=== PATIENT | female | born 1965 | race Caucasian/White ===

== ENCOUNTER → 2016-09-07 | Outpatient (CLI) | payer BC | END | disposition home or self-care (01) | LOC: C.PAPS 08:35 | PROVIDERS: ATTEND Obstetrics & Gynecology | DX: Z01.419 Encounter for gynecological examination (general) (routine) without abnormal findings (principal) ==

== ENCOUNTER → 2016-09-24 | Outpatient (CLI) | payer BC ==
--- NOTE | 2016-09-24 14:06 | MAMMOGRAPHY REPORT ---
BILATERAL DIGITAL SCREENING MAMMOGRAM TOMOSYNTHESIS WITH CAD: 09/24/2016 CLINICAL HISTORY: Routine screening. Patient has no complaints. TECHNIQUE: Breast tomosynthesis in addition to standard 2D mammography was performed. Current study was also evaluated with a Computer Aided Detection (CAD) system. COMPARISON: Comparison is made to exams dated: 09/23/2015 mammogram, 09/19/2014 mammogram, 05/24/2013 mammogram, 05/19/2012 mammogram, 05/18/2011 mammogram - [facility], and 11/15/2008. BREAST COMPOSITION: The tissue of both breasts is heterogeneously dense, which may obscure small ma sses. FINDINGS: No suspicious masses, calcifications, or areas of architectural distortion are noted in e ither breast. There has been no significant interval change compared to prior exams. IMPRESSION: ACR BI-RADS CATEGORY 1: NEGATIVE There is no mammographic evidence of malignancy. A 1 year screening mammogram is recommended. The p atient will receive written notification of the results. Approximately 10% of breast cancers are not detected with mammography. A negative mammographic repor t should not delay biopsy if a clinically suggestive mass is present. Lisandra Elliott M.D. ah/:09/24/2016 07:53:27 Statement Distribution Clerk: Radha VERDE(Kimberly)(M), [facility] letter sent: Normal 1/2 BI-RADS Code: ACR BI-RADS Category 1: Negative
== END | disposition home or self-care (01) ==
LOC: C.MAMM 07:36
PROVIDERS: ATTEND Obstetrics & Gynecology
DX: Z12.31 Encounter for screening mammogram for malignant neoplasm of breast (principal)

== ENCOUNTER 2024-03-06 15:59 | Observation (INO) ==
--- NOTE | 2024-03-06 16:28 | XRay Report ---
EXAM: Radiograph of the Chest 1 View INDICATION: Chest pain. TECHNIQUE: Frontal view of the chest. COMPARISON: 01/09/2022 FINDINGS: Lungs and pleural spaces: No consolidation or pulmonary edema. No pleural effusion or pneumothorax. Heart: Shape and configuration within normal limits allowing for technique. Mediastinum: Normal contour. Bones/joints: No fracture, erosion or dislocation. Soft tissues: No abnormality noted. No radiopaque foreign body noted. Upper abdomen: No abnormality noted. IMPRESSION: No abnormality noted. Electronically signed by Yuli Ward 03-06-2024 4:24 PM
[2024-03-06 16:30] LABS: Basophils # (auto) 0.09 K/uL (0.00-0.20); Eosinophils % (auto) 2.1 %; Hematocrit (blood only) 40.5 % (37.0-47.0); Hemoglobin 14.3 g/dl (12.0-16.0); Immature Granulocytes # (auto) 0.03 K/uL (0.01-0.20); Immature Granulocytes % (auto) 0.3 %; Lymphocytes # (auto) 3.33 K/uL (1.20-3.40); Lymphocytes % (auto) 35.4 %; Mean Corpuscular Hemoglobin 31.6 pg (25.0-34.0); Mean Corpuscular Hgb Conc 35.3 g/dL (32.0-36.0); Mean Corpuscular Volume 89.6 fL (80.0-100.0); Monocytes # (auto) 0.91 K/uL (0.11-0.59); Monocytes % (auto) 9.7 %; Neutrophils # (auto) 4.86 K/uL (1.40-6.50); Neutrophils % (auto) 51.5 %; Platelet Count 271 K/uL (130-400); RDW Coefficient of Variation 11.8 % (11.5-14.5); RDW Standard Deviation 38.3 fL (36.4-46.3); Red Blood Count 4.52 M/uL (4.20-5.40); White Blood Count 9.42 K/ul (4.8-10.8)
[2024-03-06 16:48] LABS: Alanine Aminotransferase 28 U/L (7-52); Albumin Globulin Ratio 1.5 (0.9-2); Albumin Level 4.5 gm/dl (3.4-5.0); Alkaline Phosphatase 88 U/L (34-104); Anion Gap 8 (3-11); Aspartate Aminotransferase 22 U/L (13-39); BUN Creatinine Ratio 15.5 (10-20); Bilirubin,Total 0.7 mg/dl (0.2-1.0); Blood Urea Nitrogen 16 mg/dl (6-23); Calcium 9.2 mg/dl (8.6-10.3); Carbon Dioxide 26 mmol/L (21-32); Chloride 105 mmol/L (98-107); Creatinine Clr Calc Pharmacy 63.3 ml/min; Globulin 3.1 gm/dl (2.5-4.0); Glucose 108 mg/dl (70-99(Fasting)); Potassium 3.4 mmol/L (3.5-5.1); Sodium 139 mmol/L (136-145); Total Protein 7.6 gm/dl (6.0-8.3)
[2024-03-06 16:54] LABS: Troponin I High Sensitivity 2.9 pg/ml (0-14)
--- NOTE | 2024-03-06 16:54 | Emergency Department Note ---
Impression & Plan Chest pain, Hypokalemia ED Provider Note NAME: DEVIN OGDEN AGE: 58 SEX: F : 1965 ARRIVES VIA: Walk-In INFORMANT: Patient ED PROVIDER(S): Jose Dunn DO CHIEF COMPLAINT: chest pain HPI: Patient is a 58-year-old female with a past medical history of depression and anxiety who presents to the ER for chest pain. Pain is located in the middle of the chest. Pain started around 2:00 today. It is worse with exertion and improves with rest. Pain is located in right upper chest and goes up through the neck currently. She admits to shortness of breath with this. She has had no symptoms prior to this. Denies any belly pain, nausea, vomiting, or diarrhea. No dysuria, urgency, or frequency. She admits she is on doxycycline for an upper respiratory infection/sinusitis. Did have some constipation earlier that has resolved. Denies any history of diabetes, hypertension, hyperlipidemia, CAD or smoking. Does have a family history of heart disease. ADDITIONAL HISTORY OBTAINED: Per HPI Chronic Medical/Social Conditions Affecting Care: Per HPI PAST MEDICAL HISTORY:See Below PAST SURGICAL HISTORY:See Below FAMILY HISTORY:See Below SOCIAL HISTORY:See Below HOME MEDICATIONS:See Below ALLERGIES:See Below VITALS:See Below PHYSICAL EXAMINATION: GENERAL: Sitting up in bed, alert, well appearing, well nourished, no distress, non-toxic EYE EXAM: normal conjunctiva. PERRL and EOM's grossly intact. OROPHARYNX: no exudate, no erythema, lips, buccal mucosa, and tongue normal and mucous membranes are moist NECK: supple, no nuchal rigidity, no adenopathy, non-tender LUNGS: Clear to auscultation. Normal chest wall mechanics HEART: no murmurs, S1 normal and S2 normal ABDOMEN: abdomen soft, non-tender, normo-active bowel sounds, no masses, no rebound or guarding. UPPER EXTREMITIES: upper extremities are grossly normal. LOWER EXTREMITIES: Calves are equal bilaterally NEURO EXAM: Normal sensorium, cranial nerves II-XII grossly intact, normal speech, no gross weakness of arms, no gross weakness of legs. MEDICAL DECISION MAKING: Patient is a 58-year-old female who presents ER for the above-stated complaint. IV was established and blood work was obtained. Labs show no significant leukocytosis or anemia. INR unremarkable. D-dimer was negative and low risk patient not be pursued any further. BMP with mild hypokalemia 3.3. LFTs bilirubin was unremarkable. Mag 2.1. Troponins were negative x 1. EKG does appear to be change from previous. Symptoms are exertional. She was given nitro and pain resolved as well as aspirin. Patient was updated bedside discussed with the hospitalist for further evaluation management treatment. Consults/Care Managements Discussions: Per MDM Triage Nursing notes reviewed. Limited review of prior medical records performed Vital Signs: reviewed and remarkable for HTN Differential diagnosis: Cardiac ischemia, aortic dissection, pulmonary embolism, pneumothorax, pneumonia, pericarditis, myocarditis, esophageal rupture, GERD, cholecystitis, pancreatitis, musculoskeletal, as well as other pathologies. ER treatment provided: See below Diagnostics interpreted by me include EKG and cardiac monitoring as listed below: -Cardiac Monitoring: An order was placed for continuous cardiac monitoring. The monitor shows a rate of 85 with sinus rhythm. -ECG: Sinus rhythm rate of 90 Normal axis QTc [address] ST depressions in the inferior leads as well as the lateral leads -Laboratory studies:Interpreted by me as stated above in MDM and shown below. Imaging studies: Xrays: As interpreted by me: Portable AP upright 1 view of the chest shows no focal infiltrate CTs show: none Procedures:none Critical Care: None Past Med/Surg History Problem List (Updated 03/06/24 @ 21:45 by Jose Dunn DO) Hypokalemia (Acute) Chest pain (Acute) Sinusitis Encounter for annual routine gynecological examination Medical History (Updated 03/06/24 @ 21:45 by Jose Dunn DO) Breast lump Migraine headache History of herpes zoster Surgical History S/P lumpectomy, right breast radial scar S/P tonsillectomy H/O oral surgery Family History Aunt Breast cancer Denies family history of Ovarian cancer Prostate cancer Myocardial infarction Colorectal cancer Social History (Updated 06/21/23 @ 15:22 by Jo Ann Junior, FAIZA) Smoking Status: Never smoker Tobacco Type: Cigarettes Age Quit Using Tobacco: 21; Do You Dip or Chew Tobacco: No; Hx Alcohol Use: Yes Hx Substance Use: No Preferred Language: Greenlandic marital status: 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 Feels Safe at Home: Yes Allergies Allergies Allergy/AdvReac Type Severity Reaction Status Date / Time amoxicillin Allergy Unknown Verified 03/06/24 17:17 levofloxacin [From Levaquin] Allergy Unknown Verified 03/06/24 17:17 sumatriptan Allergy Unknown Verified 03/06/24 17:17 Home Meds Home Medications Medication Instructions Recorded Confirmed magnesium oxide 500 mg PO BID 01/13/19 03/06/24 melatonin 5 mg tablet 5 mg PO HS PRN Sleep 01/13/19 03/06/24 riboflavin (vitamin B2) 100 mg 400 mg PO QAM 04/07/20 03/06/24 tablet (Vitamin B-2) tizanidine 4 mg tablet 4 mg PO HS PRN migraines 04/07/20 03/06/24 rimegepant [Nurtec ODT] 1 tab PO .EVERY OTHER DAY 06/21/23 03/06/24 bupropion HCl 300 mg 24 hr tablet, 300 mg PO QAM 03/06/24 03/06/24 extended release doxycycline hyclate 100 mg capsule 100 mg PO BID 03/06/24 03/06/24 lactobacillus combination no.4 3 0 cell PO DAILY 03/06/24 03/06/24 billion cell capsule (Probiotic) montelukast 10 mg tablet 10 mg PO QAM 03/06/24 03/06/24 Previous Rx's Medication Instructions Recorded tramadol 50 mg tablet 50 mg PO Q6H PRN pain #14 tabs 04/07/20 Results & Data (ED) Vital Signs Vital Signs - 24 hr 03/06/24 16:01 03/06/24 16:51 03/06/24 16:51 Temperature 36.8 C Temperature Source Temporal Artery Scan Pulse Rate 100 H Pulse Rate [Apical] 77 Respiratory Rate 18 21 Respiratory Effort / Characteristics Non-Labored Spontaneous Non-Labored Spontaneous Respiratory Depth Normal Normal Respiratory Pattern Regular Blood Pressure 162/93 H Blood Pressure [Left Arm] 159/76 H Blood Pressure Mean 116 Blood Pressure Mean [Left Arm] 103 Blood Pressure Position Sitting Blood Pressure Position [Left Arm] Semi-fowlers Pulse Oximetry 100 100 100 Oxygen Delivery Method Room Air Room Air Room Air Oxygen Flow Rate 0 Sepsis Recent Fever Within 48 Hours No Sepsis New/Unexplained Change in Mental Status No Sepsis Action Taken by Nursing No Action Required 03/06/24 16:51 Temperature Temperature Source Pulse Rate 78 Pulse Rate [Apical] Respiratory Rate 16 Respiratory Effort / Characteristics Respiratory Depth Respiratory Pattern Blood Pressure Blood Pressure [Left Arm] Blood Pressure Mean Blood Pressure Mean [Left Arm] Blood Pressure Position Blood Pressure Position [Left Arm] Pulse Oximetry 100 Oxygen Delivery Method Room Air Oxygen Flow Rate Sepsis Recent Fever Within 48 Hours Sepsis New/Unexplained Change in Mental Status Sepsis Action Taken by Nursing Laboratory Data 03/06/24 16:10 03/06/24 16:10 Lab Results 03/06/24 Range/Units 16:10 WBC 9.42 (4.8-10.8) K/ul RBC 4.52 (4.20-5.40) M/uL Hgb 14.3 (12.0-16.0) g/dl Hct 40.5 (37.0-47.0) % MCV 89.6 (80.0-100.0) fL MCH 31.6 (25.0-34.0) pg MCHC 35.3 (32.0-36.0) g/dL RDW Std Deviation 38.3 (36.4-46.3) fL RDW Coeff of Amanda 11.8 (11.5-14.5) % Plt Count 271 (130-400) K/uL MPV 10.0 (9.4-12.4) fL Immature Gran % (Auto) 0.3 % Neut % (Auto) 51.5 % Lymph % (Auto) 35.4 % [place] % (Auto) 9.7 % Eos % (Auto) 2.1 % Baso % (Auto) 1.0 % Neut # (Auto) 4.86 (1.40-6.50) K/uL Lymph # (Auto) 3.33 (1.20-3.40) K/uL [place] # (Auto) 0.91 H (0.11-0.59) K/uL Eos # (Auto) 0.20 (0.00-0.50) K/uL Baso # (Auto) 0.09 (0.00-0.20) K/uL Immature Gran # (Auto) 0.03 (0.01-0.20) K/uL ESR 27 (0-30) mm/hr PT 10.8 (9.0-12.0) Seconds INR 1.0 (0.9-1.1) APTT 36 H (21-31) Seconds PTT Ratio 1.3 D-Dimer 450 (0-500) ug/L FEU Sodium 139 (136-145) mmol/L Potassium 3.4 L (3.5-5.1) mmol/L Chloride 105 (98-107) mmol/L Carbon Dioxide 26 (21-32) mmol/L Anion Gap 8 (3-11) BUN 16 (6-23) mg/dl Creatinine 1.03 (0.6-1.2) mg/dl Est Cr Clr Drug Dosing 63.3 ml/min eGFR 62.25 BUN/Creatinine Ratio 15.5 (10-20) Glucose 108 H (70-99(Fasting)) mg/dl Calcium 9.2 (8.6-10.3) mg/dl Magnesium 2.1 (1.7-2.4) mg/dl Total Bilirubin 0.7 (0.2-1.0) mg/dl AST 22 (13-39) U/L ALT 28 (7-52) U/L Alkaline Phosphatase 88 (34-104) U/L Troponin I High Sens 2.9 (0-14) pg/ml C-Reactive Protein < 0.50 (0-0.5) mg/dl Total Protein 7.6 (6.0-8.3) gm/dl Albumin 4.5 (3.4-5.0) gm/dl Globulin 3.1 (2.5-4.0) gm/dl Albumin/Globulin Ratio 1.5 (0.9-2) Administered Medications Doxycycline Hyclate (Doxycycline Hyclate 100 Mg Cap) 100 mg PO BID ANTHONY Stop: 03/09/24 20:59 Last Admin: 03/06/24 20:13 Dose: 100 mg Documented By: [facility] Discontinued Medications Al Hydrox/Mg Hydrox/Simethicone (Aluminum/Magnesium Susp 30 Ml Udc) 30 ml PO NOW STA Stop: 03/06/24 16:56 Last Admin: 03/06/24 17:08 Dose: 30 ml Documented By: MMF Aspirin (Aspirin Chew 324 Mg) 324 mg PO NOW STA Stop: 03/06/24 16:56 Last Admin: 03/06/24 17:08 Dose: 324 mg Documented By: MMF Ketorolac Tromethamine (Ketorolac 30 Mg/Ml Vial) 30 mg IV NOW ONE Stop: 03/06/24 18:00 Last Admin: 03/06/24 18:19 Dose: 30 mg Documented By: Nitroglycerin (Nitroglycerin Sl 0.4 Mg/Tab Tab) 0.4 mg SL NOW STA Stop: 03/06/24 16:56 Last Admin: 03/06/24 17:08 Dose: 0.4 mg Documented By: [facility] Potassium Chloride (Potassium Chloride Crtab 20 Meq Tabcr) 40 meq PO NOW STA Stop: 03/06/24 18:01 Last Admin: 03/06/24 18:19 Dose: 40 meq Documented By: Imaging Data Radiologist's Impression: Chest X-Ray 03/06/24 16:04 EXAM: Radiograph of the Chest 1 View INDICATION: Chest pain. TECHNIQUE: Frontal view of the chest. COMPARISON: 01/09/2022 FINDINGS: Lungs and pleural spaces: No consolidation or pulmonary edema. No pleural effusion or pneumothorax. Heart: Shape and configuration within normal limits allowing for technique. Mediastinum: Normal contour. Bones/joints: No fracture, erosion or dislocation. Soft tissues: No abnormality noted. No radiopaque foreign body noted. Upper abdomen: No abnormality noted. IMPRESSION: No abnormality noted. Electronically signed by Yuli Ward 03-06-2024 4:24 PM Discharge Plan Visit Data Chief Complaint: Chest Pain Stated Complaint: CHEST PAIN, SOB ED Provider: Jose Dunn Discharge Problem: Chest pain, Hypokalemia Patient Disposition: Admitted As Inpatient Discharge Instructions Interventions: ED Discharge Assessment Last Done: 03/06/24 18:33 Discharge Problem: Chest pain Qualifiers: Chest pain type: unspecified Qualified Code(s): R07.9 - Chest pain, unspecified
[2024-03-06 16:58] LABS: Partial Thromboplastin Ratio 1.3; Partial Thromboplastin Time 36 Seconds (21-31); Prothrombin Time 10.8 Seconds (9.0-12.0)
[2024-03-06] MEDS: NITROGLYCERIN SL 0.4 MG/TAB TAB SL STA (17:08)
[2024-03-06] MEDS: ALUMINUM/MAGNESIUM SUSP 30 ML UDC PO STA (17:08)
[2024-03-06] MEDS: ASPIRIN CHEW 324 MG PO STA (17:08)
[2024-03-06] MEDS: KETOROLAC 30 MG/ML VIAL IV ONE (18:19)
[2024-03-06] MEDS: POTASSIUM CHLORIDE CRTAB 20 MEQ TABCR PO STA (18:19)
--- NOTE | 2024-03-06 18:29 | History & Physical Report ---
Date of Service March 06, 2024 Assessment & Plan (1) Migraine headache: (2) Sinusitis: Plan Assessment and plan: Chest painmidsternal: Received aspirin/nitro with relief, no hypoxia Reports shortness of breath with exertion, check echo EKG without acute changes, consult cardiology, trend troponins N.p.o. after midnight for possible stress test/cath Telemetry monitoring, repeat EKG with any further chest pain Check D-dimer/CRP/ESR Hx migraines: Takes Nurtec as needed, IV Toradol x 1 given in ED Hx anxiety: Continue Wellbutrin A total of 60 minutes was spent on chart review/reviewing diagnostic data/facilitating plan of care/discussion with consultants Full code DVT prophylaxis: Lovenox History of Present Illness Chief Complaint: Chest pain, shortness of breath with exertion Primary Care Provider: Rudy Kelly DO The patient is a 58-year-old female with past medical history of migraines, anxiety, seasonal allergies who presents to the ED on 03/26 with complaints of sharp chest pain in the middle of her chest that radiates to her right jaw. Patient reported her pain started around 2 PM earlier today. The chest pain worsens with exertion and improves with rest. Patient reports that the pain starts in the middle of her chest goes up to her right upper chest and goes up to her right jaw and neck. Also reports lately having some shortness of breath with exertion with movement. She denies any cardiac history. She is never seen a imager in the past. She was recently seen for a sinus infection/upper respiratory infection and started on Doxy which she has been on for about 7 days intended to have a full 10-day course. Reports frequent sinus infections in the past. Patient does report she does have a history of heart disease. On exam, the patient no longer has chest pain but does report some right jaw pain. Reports feeling as though she is having an aura that usually causes her migraines. Denies any neurological symptoms. Denies any numbness/weakness. On arrival to the ED, labs are fairly unremarkable, potassium is 3.4, glucose 108 Chest x-ray was negative for anything acute Troponin negative, no acute EKG changes. The patient will be admitted for further monitoring rule out ACS Allergies Allergy/AdvReac Type Severity Reaction Status Date / Time amoxicillin Allergy Unknown Verified 03/06/24 17:17 levofloxacin [From Levaquin] Allergy Unknown Verified 03/06/24 17:17 sumatriptan Allergy Unknown Verified 03/06/24 17:17 Home Medications Medication Instructions Recorded Confirmed Type magnesium oxide 500 mg PO BID 01/13/19 03/06/24 History melatonin 5 mg tablet 5 mg PO HS PRN Sleep 01/13/19 03/06/24 History riboflavin (vitamin B2) 100 mg 400 mg PO QAM 04/07/20 03/06/24 History tablet (Vitamin B-2) tizanidine 4 mg tablet 4 mg PO HS PRN migraines 04/07/20 03/06/24 History tramadol 50 mg tablet 50 mg PO Q6H PRN pain #14 tabs 04/07/20 03/06/24 Rx rimegepant [Nurtec ODT] 1 tab PO .EVERY OTHER DAY 06/21/23 03/06/24 History bupropion HCl 300 mg 24 hr tablet, 300 mg PO QAM 03/06/24 03/06/24 History extended release doxycycline hyclate 100 mg capsule 100 mg PO BID 03/06/24 03/06/24 History lactobacillus combination no.4 3 0 cell PO DAILY 03/06/24 03/06/24 History billion cell capsule (Probiotic) montelukast 10 mg tablet 10 mg PO QAM 03/06/24 03/06/24 History Past Med/Surg History Problem List (Updated 03/06/24 @ 18:24 by TALITA Nguyen) Sinusitis Encounter for annual routine gynecological examination Medical History (Updated 03/06/24 @ 18:24 by TALITA Nguyen) Breast lump Migraine headache History of herpes zoster Surgical History S/P lumpectomy, right breast radial scar S/P tonsillectomy H/O oral surgery Family History Aunt Breast cancer Denies family history of Ovarian cancer Prostate cancer Myocardial infarction Colorectal cancer Social History (Updated 06/21/23 @ 15:22 by Jo Ann Junior, FAIZA) Smoking Status: Never smoker Tobacco Type: Cigarettes Age Quit Using Tobacco: 21; Do You Dip or Chew Tobacco: No; Hx Alcohol Use: Yes Hx Substance Use: No Preferred Language: Citizen [place] marital status: 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 Feels Safe at Home: Yes Review of Systems Review of Systems: All systems reviewed & are unremarkable except as noted in HPI & below Physical Exam Constitutional: WD/WN, vitals as above well developed and well nourished; no acute distress Eyes: PERRL, conjunctivae normal, anicteric sclerae ENMT: external ear and nose normal, oropharynx normal (Right jaw pain on exam) Neck: trachea midline, no thyromegaly Respiratory: normal respiratory effort, lungs clear to auscultation Cardiovascular: RRR, no murmur, no edema Gastrointestinal (Abdomen): normal bowel sounds, soft, nontender, no hepatosplenomegaly Musculoskeletal: no cyanosis or clubbing, extremities motor strength 5/5 Neurologic: PERRL, EOMI, accommodation nl, no face palsy, no dysarthria Lymphatic: no cervical or axillary lymphadenopathy Results & Data Results & Data Vital Signs (Past 12 Hours) Vital Signs Temp Pulse Pulse Resp BP BP Pulse Ox 03/06/24 18:00 86 03/06/24 16:51 78 16 100 03/06/24 16:51 77 21 159/76 H 100 03/06/24 16:51 100 03/06/24 16:01 36.8 C 100 H 18 162/93 H 100 O2 Del Method O2 Flow Rate 03/06/24 18:00 03/06/24 16:51 Room Air 03/06/24 16:51 Room Air 03/06/24 16:51 Room Air 0 03/06/24 16:01 Room Air Diagnostic Findings Laboratory Results WBC 9.42 K/ul (4.8-10.8) 03/06/24 16:10 RBC 4.52 M/uL (4.20-5.40) 03/06/24 16:10 Hgb 14.3 g/dl (12.0-16.0) 03/06/24 16:10 Hct 40.5 % (37.0-47.0) 03/06/24 16:10 MCV 89.6 fL (80.0-100.0) 03/06/24 16:10 MCH 31.6 pg (25.0-34.0) 03/06/24 16:10 MCHC 35.3 g/dL (32.0-36.0) 03/06/24 16:10 RDW Std Deviation 38.3 fL (36.4-46.3) 03/06/24 16:10 RDW Coeff of Amanda 11.8 % (11.5-14.5) 03/06/24 16:10 Plt Count 271 K/uL (130-400) 03/06/24 16:10 MPV 10.0 fL (9.4-12.4) 03/06/24 16:10 Immature Gran % (Auto) 0.3 % 03/06/24 16:10 Neut % (Auto) 51.5 % 03/06/24 16:10 Lymph % (Auto) 35.4 % 03/06/24 16:10 [place] % (Auto) 9.7 % 03/06/24 16:10 Eos % (Auto) 2.1 % 03/06/24 16:10 Baso % (Auto) 1.0 % 03/06/24 16:10 Neut # (Auto) 4.86 K/uL (1.40-6.50) 03/06/24 16:10 Lymph # (Auto) 3.33 K/uL (1.20-3.40) 03/06/24 16:10 [facility] # (Auto) 0.91 K/uL (0.11-0.59) H 03/06/24 16:10 Eos # (Auto) 0.20 K/uL (0.00-0.50) 03/06/24 16:10 Baso # (Auto) 0.09 K/uL (0.00-0.20) 03/06/24 16:10 Immature Gran # (Auto) 0.03 K/uL (0.01-0.20) 03/06/24 16:10 PT 10.8 Seconds (9.0-12.0) 03/06/24 16:10 INR 1.0 (0.9-1.1) 03/06/24 16:10 APTT 36 Seconds (21-31) H 03/06/24 16:10 PTT Ratio 1.3 03/06/24 16:10 Sodium 139 mmol/L (136-145) 03/06/24 16:10 Potassium 3.4 mmol/L (3.5-5.1) L 03/06/24 16:10 Chloride 105 mmol/L (98-107) 03/06/24 16:10 Carbon Dioxide 26 mmol/L (21-32) 03/06/24 16:10 Anion Gap 8 (3-11) 03/06/24 16:10 BUN 16 mg/dl (6-23) 03/06/24 16:10 Creatinine 1.03 mg/dl (0.6-1.2) 03/06/24 16:10 Est Cr Clr Drug Dosing 63.3 ml/min 03/06/24 16:10 eGFR 62.25 03/06/24 16:10 BUN/Creatinine Ratio 15.5 (10-20) 03/06/24 16:10 Glucose 108 mg/dl (70-99(Fasting)) H 03/06/24 16:10 Calcium 9.2 mg/dl (8.6-10.3) 03/06/24 16:10 Total Bilirubin 0.7 mg/dl (0.2-1.0) 03/06/24 16:10 AST 22 U/L (13-39) 03/06/24 16:10 ALT 28 U/L (7-52) 03/06/24 16:10 Alkaline Phosphatase 88 U/L (34-104) 03/06/24 16:10 Troponin I High Sens 2.9 pg/ml (0-14) 03/06/24 16:10 Total Protein 7.6 gm/dl (6.0-8.3) 03/06/24 16:10 Albumin 4.5 gm/dl (3.4-5.0) 03/06/24 16:10 Globulin 3.1 gm/dl (2.5-4.0) 03/06/24 16:10 Albumin/Globulin Ratio 1.5 (0.9-2) 03/06/24 16:10 Impressions Chest X-Ray 03/06/24 16:04 EXAM: Radiograph of the Chest 1 View INDICATION: Chest pain. TECHNIQUE: Frontal view of the chest. COMPARISON: 01/09/2022 FINDINGS: Lungs and pleural spaces: No consolidation or pulmonary edema. No pleural effusion or pneumothorax. Heart: Shape and configuration within normal limits allowing for technique. Mediastinum: Normal contour. Bones/joints: No fracture, erosion or dislocation. Soft tissues: No abnormality noted. No radiopaque foreign body noted. Upper abdomen: No abnormality noted. IMPRESSION: No abnormality noted. Electronically signed by Yuli Wadr 03-06-2024 4:24 PM Code Status & VTE Plan VTE Prophylaxis Plan VTE Prophylaxis will be ordered: Yes Supervising Physician Co-Signing Physician Notes Attending Addendum: Case reviewed with the advanced practitioner. I have personally performed a history and physical examination on the patient. I have reviewed the advanced practitioner's documentation on the date of service referenced in note, and I agree with, and take responsibility for the plan of care. please refer to her notes for full details patient seen and examined, records reviewed by myself as well on exam, patient Seen resting in bed, comfortable, good spirits Patient's at the bedside visiting On exam, patient denies active chest pain, shortness of breath, nausea States chest pain relieved by nitro and Aspirin given at the ER no other symptoms VS noted and reviewed oriented x3, not in distress, speaks in sentences with no effort nor accessory muscle use normal rate, regular rhythm, no murmurs clear breath sounds bilaterally non distended, soft, nontender no bipedal edema, erythema, warmth no neuro deficits all labs, imaging noted and reviewed ASSESSMENT AND PLAN> Chest pain, rule out acute coronary syndrome Remote history of smoking Presentation highly suspicious for angina/ACS Initial troponin negative, troponin x 2 pending EKG: Positive nonspecific T wave inversions in the septal leads Echocardiogram ordered EKG in a.m. Start aspirin 81 mg p.o. daily N.p.o. postmidnight for possible stress test Cardiology service consulted other diagnoses and plan of care as per advanced practitioner's notes Manjinder Barrera MD
[2024-03-06 18:44] LABS: C Reactive Protein < 0.50 mg/dl (0-0.5); Magnesium 2.1 mg/dl (1.7-2.4)
[2024-03-06 18:46] LABS: D Dimer 450 ug/L FEU (0-500)
[2024-03-06] MEDS: DOXYCYCLINE HYCLATE 100 MG CAP PO SCH (20:13)
[2024-03-06] MEDS: NITROGLYCERIN SL 0.4 MG/TAB TAB SL PRN (22:13)
--- NOTE | 2024-03-06 22:21 | Communication Note ---
Date of Service: March 06, 2024 Patient complaining of right-sided chest pain relieved by nitroglycerin. Patient anxious as per RN. SBP 170s. EKG as per my interpretation rate 85, NSR, normal axis, no ischemia AP Chest pain Uncontrolled hypertension Anxiety contributory Initiate lisinopril Anxiolytic as needed Defer need for ischemic workup to cardiology in AM.
[2024-03-06] MEDS: ACETAMINOPHEN 325 MG TAB PO PRN (22:28)
[2024-03-06] MEDS: LORazepam 0.5 MG TAB PO PRN (22:37)
[2024-03-06] MEDS: lisinopril 2.5 MG TAB PO SCH (23:07)
[2024-03-07 04:04] LABS: Chol HDL Ratio 2.9 (0-5)
--- OUTSIDE RECORDS SUMMARY | 2024-03-07 05:54 | External Medical Summary | Summary of Care ---
Author Name Unknown Organization [facility] Address [address] [place] [address] Phone [phone] Care Team Providers Care Re Recording Mixer Name Role Phone Rudy Kelly DO Primary Care Provider [phone] Reason for Visit * Reason Comments Acute Encounter Details Date Type Department Care Team ([facility] st Contact Info) Description 02/28/2024 3:20 PM EDT Office Visit Family Practice [facility] [address] [place] [address] Kathia Bridges PA-C [address] [facility] [place] [address] Acute maxillary sinusitis, recurrence not specified* Allergies Active Allergy Reactions Criticality Noted Date Comments Cephalosporins Rash 01/18/2010 Clavulanic Acid Hives 07/23/2021 Quinolones Hives High 06/15/2007 Zolmitriptan 07/17/2015 Jaw/neck stiff; took 2 hours to relax muscles documented as of this encounter (statuses as of 02/28/2024) Medications Medication Sig Dispensed Refills Start Date End Date Status MULTIVITAMINS PO TABS 1 tab daily Active OCEAN NASAL SPRAY 0.65 % NA SOLNIndications: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 Active Fluticasone Propionate 50 MCG/ACT Nasal Suspension (Flonase)Indications :Chronic maxillary sinusitis Administer 2 Sprays into each nostril in the morning. opp hand. 18.2 mL 11 09/14/2022 Active Montelukast Sodium 10 MG Oral Tablet (Singulair)Indicatio ns:Nonallergic rhinitis take 1 tablet by mouth every morning 30 Tablet 5 04/01/2023 Active Ketorolac Tromethamine 10 MG Oral Tablet (Toradol)Indications :Intractable migraine without aura and with status migrainosus take 1 tablet by mouth four times a day FOR MODERATE PAIN DO NOT TAKE LONGER THAN 5 DAYS 20 Tablet 1 04/01/2023 Active Additional Information Patient taking differently: PRN, Migraines, take 1 tablet by mouth four times a day FOR MODERATE PAIN DO NOT TAKE LONGER THAN 5 DAYS, Reported on 05/07/2023 QUEtiapine Fumarate 25 MG Oral Tablet (SEROquel)Indication s:Migraine without aura and without status migrainosus, not intractable take 1 tablet by mouth if needed for SEVERE migraines TAKE NO MORE THAN 2 TABLETS IN 24 HOURS 30 Tablet 5 07/13/2023 Active Vitamin B-2 100 MG Oral Tablet (Riboflavin)Indicati ons:Intractable migraine without aura and with status migrainosus take 4 tablets by mouth daily WITH BREAKFAST 120 Tablet 11 07/21/2023 Active Simethicone 80 MG Oral Tablet Chewable (Mylicon)Indications :Right lower quadrant abdominal pain Take 1 Tablet by mouth 4 times a day as needed for Gas. 100 Tablet 1 07/30/2023 Active Nurtec 75 MG Oral Tablet Disintegrating (Rimegepant Sulfate)Indications: Intractable chronic migraine without aura and without status migrainosus TAKE 1 TABLET BY MOUTH EVERY OTHER DAY FOR MIGRAINE PREVENTION 16 Tablet 3 10/25/2023 Active buPROPion HCl ER (XL) 300 MG Oral Tablet Extended Release 24 Hour (Wellbutrin XL) TAKE 1 TABLET BY MOUTH EVERY MORNING 90 Tablet 1 10/25/2023 Active tiZANidine HCl 4 MG Oral Tablet (Zanaflex)Indication s:Intractable migraine without aura and with status migrainosus TAKE 1 TABLET BY MOUTH NIGHTLY 30 Tablet 6 11/22/2023 Active Magnesium Oxide -Mg Supplement 500 MG Oral CapsuleIndications:I ntractable migraine without aura and with status migrainosus TAKE 1 CAPSULE BY MOUTH IN THE MORNING AND 1 CAPSULE BEFORE BEDTIME 90 Capsule 3 01/11/2024 Active Doxycycline Hyclate 100 MG Oral Capsule Take 1 Capsule by mouth in the morning and 1 Capsule before bedtime. Do all this for 10 days. Until gone.. 20 Capsule 02/28/2024 4 Active documented as of this encounter (statuses as of 02/28/2024) Active Problems Problem Noted Date Diagnosed Date Symptomatic cholelithiasis 11/11/2021 Dysfunction of eustachian tube 05/24/2010 NASAL SINUS POLYP, RIGHT 05/24/2010 ADVANCE DIRECTIVE INFORMATION 07/01/2008 Overview: Yes, Patient instructed to provide copy of advance directive for provider to review and to be scanned into Electronic Medical Record Deviated nasal septum 08/11/2007 Hypertrophy of nasal turbinates 08/11/2007 Overview: Jaqueline bullosa Migraine 08/11/2007 NONALLERGIC RHINITIS 08/11/2007 Chronic sinusitis documented as of this encounter (statuses as of 02/28/2024) Resolved Problems Problem Noted Date Diagnosed Date Resolved Date Current mild episode of avila r depressive disorder without prior episode 07/23/2021 3 documented as of this encounter (statuses as of 02/28/2024) Immunizations Name Administration Dates Next Due COVID-19 mRNA, LNP-s, No Pre serve, 2-Dose Series ([employer]) 04/17/2021,08/15/2020,07/15/2020 Seasonal Influenza Vac., MDV , IM, 0.5 mL (Fluzone) 02/03/2013,02/10/2012,03/12/2011,2009 Seasonal Influenza Virus Vac cine, Unspecified Formulation 01/20/2021,02/19/2020,01/20/2018,2017,01/13/2016,04/16/2015,02/03/2013,1 ,03/12/2011,04/23/2010 Seasonal Influenza, PF, 6 M & above, IM , (FluLaval or Fluzone) 01/23/2022,01/20/2021,01/20/2018,2017 Seasonal Influenza, Quadriva lent, No Preserve, IM 01/13/2016,04/16/2015 TD, Preservative Free 01/04/2003 TDAP (age 10 and older)(Boostrix) 01/20/2021 TDAP, Age 7 and older, IM (Adacel) 10/27/2010 Zoster Vaccine Recombinant (Shingrix) 07/23/2021 ,01/20/2021 documented as of this encounter Social History Tobacco Use Types Packs/Day Years Used Date Smoking Tobacco: Former Cigarettes 1 2 0 05/03/1986 - 05/03/1988 Smokeless Tobacco: Never Comments:no passive smoke ex posures Alcohol Use Standard Drinks/Week Comments Yes 1.7 (1 standard drink = 0.6 oz p ure alcohol) rare PHQ-2 Answer Date Recorded PHQ Adult Total Score 0 01/23/2022 Utilities Answer Date Recorded Do you have trouble paying y our heating, water, or electric bill? (Adult - for ages 18 years and over) Not on file 10/19/2023 Is your family able to pay t he heat, water, or electric bill? (Household - for ages 0-17 years) Not on file 10/19/2023 Does your family have access to good internet? (Household - for ages 0-17 years) Not on file 10/19/2023 Social Connections Answer Date Recorded How often do you feel lonely or isolated from those around you? (Adult - for ages 18 years and over) Not on file 10/19/2023 Sex and Gender Information Value Date Recorded Sex Assigned at Not on file Gender Identity Not on file Sexual Orientation Not on file Job Start Date Occupation Industry Not on file Not on file Not on file documented as of this encounter Last Filed Vital Signs Vital Sign Reading Time Taken Comments Blood Pressure 122/80 02/28/2024 3:24 PM EDT Pulse 74 02/28/2024 3:24 PM EDT Temperature 36.4 C (97.5 F) 02/28/2024 3:24 PM ED T Respiratory Rate 16 02/28/2024 3:24 PM EDT Oxygen Saturation 97% 02/28/2024 3:24 PM EDT Inhaled Oxygen Concentration - - Weight 80.3 kg (177 lb 1.9 oz) 02/28/2024 3:24 P M EDT Height - - Body Mass Index 26.38 01/11/2024 10:34 AM EDT documented in this encounter Progress Notes * Kathia Bridges PA-C - 02/28/2024 3:42 PM EDT Images from the original note were not included. History of Present Illness Teresa Caceres is a 58 year old female that presents for Acute Patient is a 58 year old female who presents with respiratory symptoms of over 2 weeks duration. She got a bad headache last week . Has had a headache and facial pressure since. She also notes, nasalcongestion, pn drip, Tried sudafed, flonase, zyrtec Physical Exam Vitals: 02/28/24 1524 Temp: 36.4 C (97.5 F) Pulse: 74 Resp: 16 SpO2: 97% BP: 122/80 BP Readings from Last 3 Encounters: 02/28/24 122/80 01/11/24 102/70 07/28/23 130/84 Wt Readings from Last 3 Encounters: 02/28/24 80.3 kg (177 lb 1.9 oz) 01/11/24 81.2 kg (179 lb) 07/28/23 86 kg (189 lb 11.2 oz) General: alert, no distress, well nourished, well developed, and cooperative Head: Normocephalic, No masses, lesions, tenderness or abnormalities Eye Exam: PERRLA, extraocular movements intact, conjunctiva are pink and non- injected, sclera clear Ears: External ears normal, Canals clear, R TM dull, L TM dull Nose: purulent rhinorrhea, mucosal edema, mucosal erythema Oropharynx: no exudate, lips, buccal mucosa, and tongue normal, mucous membranes are moist, mild erythema, and post nasal drip Neck: supple, no adenopathy, no bruits, thyroid normal size, non-tender, without nodularity Heart: regular rate & rhythm, no murmur, and no gallops Lungs: chest symmetric with normal AP diameter, no chest deformities noted, normal respiratory rateand rhythm, no chest wall tenderness, diaphragmatic excursion normal, lungs clear to auscultation I have reviewed the following results: None Assessment and Plan Acute maxillary sinusitis, recurrence not specified (Primary) Other orders - Doxycycline Hyclate 100 MG Oral Capsule; Take 1 Capsule by mouth in the morning and 1 Capsule before bedtime. Do all this for 10 days. Until gone.. Wrap-Up Time: I spent a total of 20-29 minutes (exact time 24 mins) on the date of service in preparation, delivery, and documentation of the care provided to Teresa Caceres excluding any time spent in the performance of separately billed services. documented in this encounter Nursing Notes * Thelma Barlow LPN - 02/28/2024 3:22 PM EDT Pt in today for a possible sinus infection Face is sore/tender to touch Headache x 1 week Post nasal drip x 1-2 weeks documented in this encounter Plan of Treatment Upcoming Encounters Date Type Department Care Team (Late st Contact Info) Description 09/12/2024 8:00 AM EDT Office Visit Neurology [facility] [place] [address] [facility] [place] [address] H[place], [address] [facility] [place] [address] Scheduled Procedures Name Priority Associated Diagnoses Date/Ti me COLONOSCOPY FLEXIBLE PROXIMAL DIAGNOSTIC Recall Colon cancer screening Health Maintenance Due Date Last Done Comments Hepatitis C Screening 12/19/1981 HPV/Co-Test 12/19/1993 Cologuard 12/19/2008 Fecal Occult Blood Test 12/19/2008 Sigmoidoscopy 12/19/2008 Cervical Cancer Screening 01/12/2022 Pap Smear 01/12/2022 01/12/2019, 05/0 12/2016, 04/17/2015, Additional history exists Depression Screening 01/23/2023 01/23/2022 COVID-19 Vaccine ( season) 2024 04/17/2021, 08/15/2020, 07/15/2020 Influenza Vaccine (FLU shot) (#1) 2024 01/23/2022, 01/20/2021, 01/20/2021, Additional history exists Mammogram 06/15/2024 06/15/2023, 03/03, 11/11/2020, Additional history exists Lipid Panel 07/30/2025 07/30/2020, 07/01, 03/28/2008, Additional history exists Diabetes Screening 07/28/2026 07/29/2023, 0 10/13/2021, 07/30/2020, Additional history exists Colonoscopy 02/01/2027 02/01/2017, 02/01/2017 Colorectal Cancer Screening 02/01/2027 DTap/Tdap Vaccines (3 - Td or Tdap) 01/20/2031 01/20/2021, 10/27/2010, 01/04/2003, Additional history exists Zoster Vaccines Completed 07/23/2021, 01/20/2021 HPV (Gardasil) Vaccine Aged Out No lo nger eligible based on patient's age to complete this topic Hepatitis B Vaccine Aged Out No longe r eligible based on patient's age to complete this topic MENINGOCOCCAL (MENACTRA/MENVEO) Aged Out No longer eligible based on patient's age to complete this topic Pneumococcal Vaccine: Pediatrics (0 to 5 Years) and At-Risk Patients (6 to 64 Years) Aged Out No longer eligible based on patient's age to complete this topic documented as of this encounter Medical Devices Not on filedocumented as of this encounter Visit Diagnoses Diagnosis Acute maxillary sinusitis, recurrence not specified- Primary documented in this encounter Care Teams Re Recording Mixer Relationship Specialty Start Date End Date Rudy Kelly DO [address] [place] [address] PCP - General Family Medicine 01/20/18 documented as of this encounter
--- OUTSIDE RECORDS SUMMARY | 2024-03-07 05:54 | External Medical Summary | Summary of Care ---
Author Name Unknown Organization [facility] Address [address] [place] [address] Phone [phone] Care Team Providers Care Supervisor Drapery Hanging Name Role Phone LeticiaRudy Cain NICE Primary Care Provider [phone] Reason for Visit * Reason Comments eRx-Medication Refill Encounter Details Date Type Department Care Team (Late st Contact Info) Description 11/20/2023 Refill Neurology [facility] [address] [place] [address] Hector Wells DO [address] [facility] [address] Intractable migraine without aura and with status migrainosus Allergies Active Allergy Reactions Criticality Noted Date Comments Cephalosporins Rash 01/18/2010 Clavulanic Acid Hives 07/23/2021 Quinolones Hives High 06/15/2007 Zolmitriptan 07/17/2015 Jaw/neck stiff; took 2 hours to relax muscles documented as of this encounter (statuses as of 11/22/2023) Medications Medication Sig Dispensed Refills Start Date End Date Status MULTIVITAMINS PO TABS 1 tab daily Active OCEAN NASAL SPRAY 0.65 % NA SOLNIndications:Chr onic rhinitis Two sprays in each nostril as needed for nasal dryness or congestion 1 Bottle 5 1 Active ZYRTEC 10 MG PO TABSIndications:Dys function of eustachian tube One pill by mouth once a day for allergies 30 Tab 11 1 Active Additional Information Patient taking differently:Oral,Indications: as needed, Reported on 11/16/2022 Melatonin 5 MG Tablet Take 1 Capsule by mouth at bedtime. Active Fluticasone Propionate 50 MCG/ACT Nasal Suspension (Flonase)Indication s:Chronic maxillary sinusitis Administer 2 Sprays into each nostril in the morning. opp hand. 18.2 mL 11 3 Active Montelukast Sodium 10 MG Oral Tablet (Singulair)Indicati ons:Nonallergic rhinitis take 1 tablet by mouth every morning 30 Tablet 5 3 Active Ketorolac Tromethamine 10 MG Oral Tablet (Toradol)Indication s:Intractable migraine without aura and with status migrainosus take 1 tablet by mouth four times a day FOR MODERATE PAIN DO NOT TAKE LONGER THAN 5 DAYS 20 Tablet 1 3 Active Additional Information Patient taking differently: PRN, Migraines, take 1 tablet by mouth four times a day FOR MODERATE PAIN DO NOT TAKE LONGER THAN 5 DAYS, Reported on 05/07/2023 Magnesium Oxide -Mg Supplement 500 MG Oral Capsule (RA Magnesium)Indicatio ns:Intractable migraine without aura and with status migrainosus Take 1 Capsule by mouth in the morning and 1 Capsule before bedtime. 60 Capsule 5 3 Active predniSONE 10 MG Oral Tablet (Deltasone)Indicati ons:Acute non-recurrent sinusitis of other sinus,Right acute serous otitis media, recurrence not specified Take 5 tabs for 2 days, 4 tabs for 2 days, 3 tabs for 2 days, 2 tabs for 2 days 1 tab for 2 days 30 Tablet 4 Active Additional Information Patient not taking.Reported on 07/21/2023 QUEtiapine Fumarate 25 MG Oral Tablet (SEROquel)Indicatio ns:Migraine without aura and without status migrainosus, not intractable take 1 tablet by mouth if needed for SEVERE migraines TAKE NO MORE THAN 2 TABLETS IN 24 HOURS 30 Tablet 5 4 Active Vitamin B-2 100 MG Oral Tablet (Riboflavin)Indicat ions:Intractable migraine without aura and with status migrainosus take 4 tablets by mouth daily WITH BREAKFAST 120 Tablet 11 4 Active Simethicone 80 MG Oral Tablet Chewable (Mylicon)Indication s:Right lower quadrant abdominal pain Take 1 Tablet by mouth 4 times a day as needed for Gas. 100 Tablet 1 4 Active Nurtec 75 MG Oral Tablet Disintegrating (Rimegepant Sulfate)Indications :Intractable chronic migraine without aura and without status migrainosus TAKE 1 TABLET BY MOUTH EVERY OTHER DAY FOR MIGRAINE PREVENTION 16 Tablet 3 4 Active buPROPion HCl ER (XL) 300 MG Oral Tablet Extended Release 24 Hour (Wellbutrin XL) TAKE 1 TABLET BY MOUTH EVERY MORNING 90 Tablet 1 4 Active tiZANidine HCl 4 MG Oral Tablet (Zanaflex)Indicatio ns:Intractable migraine without aura and with status migrainosus TAKE 1 TABLET BY MOUTH NIGHTLY 30 Tablet 6 4 Active tiZANidine HCl 4 MG Oral Tablet (Zanaflex)Indicatio ns:Intractable migraine without aura and with status migrainosus TAKE 1 TABLET BY MOUTH EVERY NIGHT 30 Tablet 6 3 11/22/19 24 Discontinued documented as of this encounter (statuses as of 11/22/2023) Active Problems Problem Noted Date Diagnosed Date [...] as of this encounter (statuses as of 11/22/2023) Resolved Problems Problem Noted Date Diagnosed Date Resolved Date Current mild episode of avila r depressive disorder without prior episode 07/23/2021 3 documented as of this encounter (statuses as of 11/22/2023) Immunizations Name Administration Dates Next Due COVID-19 mRNA, LNP-s, No Pre serve, 2-Dose Series ([employer]) 04/17/2021,08/15/2020,07/15/2020 Seasonal Influenza Virus Vac cine, Unspecified Formulation 01/20/2021,02/19/2020,01/20/2018,2017,01/13/2016,04/16/2015,02/03/2013,1 ,03/12/2011,04/23/2010 Seasonal Influenza, PF, 6 M & above, IM , (FluLaval or Fluzone) 01/23/2022,01/20/2021,01/20/2018,2017 Seasonal Influenza, Quadriva lent, No Preserve, IM 01/13/2016,04/16/2015 Seasonal Influenza, Split, I IV3, With Preserve, Inj 02/03/2013,02/10/2012,03/12/2011,2009 TD, Preservative Free 01/04/2003 TDAP (age 10 [...] on file documented as of this encounter Miscellaneous Notes * Telephone Encounter - Hector Wells DO - 11/22/2023 9:08 AM EDT Signed Prescriptions: Disp Refills tiZANidine HCl 4 MG Oral Tablet (Zanaflex) 30 Tab*6 Sig: TAKE 1 TABLET BY MOUTH NIGHTLY Authorizing Provider: HECTOR WELLS * Telephone Encounter - Michelle Méndez LPN - 11/22/2023 7:47 AM EDTPending Prescriptions: Disp Refills tiZANidine HCl 4 MG Oral Tablet [Pharmacy *30 Tab*6 Sig: TAKE 1 TABLET BY MOUTH NIGHTLY * Telephone Encounter - Brooke Telles - 11/20/2023 7:09 PM EDTPending Prescriptions: Disp Refills tiZANidine HCl 4 MG Oral Tablet [Pharmacy *30 Tab*6 Sig: TAKE 1 TABLET BY MOUTH NIGHTLY * Telephone Encounter - Brooke Telles - 11/20/2023 7:08 PM EDT Did you pend patient's preferred pharmacy and medication before forwarding?yes Pharmacy: [id number] [facility] Pending Prescriptions: Disp Refills tiZANidine HCl 4 MG Oral Tablet (Zanaflex*30 Tab*6 Sig: TAKE 1 TABLET BY MOUTH NIGHTLY Last Visit: 07/21/2023 (in office), Visit date not found (telemedicine) Next Visit: 02/01/2024 If no future appointments scheduled, and last appointment is greater than a year ago, please schedule patient for a follow-up appointment Last date the medication was ordered: 04/29/2023 Is this request for a controlled substance?No Urine Drug Screen:No results found for this or any previous visit. Patient Phone Numbers Labs: Lab Results Component Value Date/Time CREAT 0.9 07/29/2023 07:44 AM CREAT 0.87 07/15/2017 12:00 AM CREAT 0.7 03/28/2008 07:37 AM POTASSIUM 4.0 07/29/2023 07:44 AM POTASSIUM 3.6 07/15/2017 12:00 AM POTASSIUM 4.0 03/28/2008 07:37 AM TSH 2.50 08/28/2013 10:38 AM LDLCALC 104 07/30/2020 07:05 AM LDLCALC 135 (A) 07/15/2017 12:00 AM LDLCALC 101 (H) 03/28/2008 07:37 AM ALT 23 07/29/2023 07:44 AM documented in this encounter Plan of Treatment Upcoming Encounters Date Type Department Care Team (Late st Contact Info) Description 02/01/2024 1:00 PM EDT Office Visit Neurology [facility] [place] [address] [place] [address] Hector Wells DO [address] [place] [address] Scheduled Procedures Name Priority Associated Diagnoses Date/Ti me COLONOSCOPY FLEXIBLE PROXIMAL DIAGNOSTIC Recall Colon cancer screening Health Maintenance Due Date Last Done Comments Hepatitis C Screening 12/19/1981 Hepatitis B Vaccine (1 of 3 - 19+ 3-dose series) 12/19/1982 HPV/Co-Test 12/19/1993 Cologuard 12/19/2008 Fecal Occult Blood Test 12/19/2008 Sigmoidoscopy 12/19/2008 Cervical Cancer Screening 01/12/2022 Pap Smear 01/12/2022 01/12/2019, 05/0 12/2016, 04/17/2015, Additional history exists COVID-19 Vaccine ( season) 2023 04/17/2021, 08/15/2020, 07/15/2020 Depression Screening 01/23/2023 01/23/2022 Influenza Vaccine (FLU shot) (#1) 2024 01/23/2022, 01/20/2021, 01/20/2021, Additional history exists Mammogram 06/15/2024 06/15/2023, 03/03, 11/11/2020, Additional history exists Lipid Panel 07/30/2025 07/30/2020, 07/01, 03/28/2008, Additional history exists Diabetes Screening 07/28/2026 07/29/2023, 0 10/13/2021, 07/30/2020, Additional history exists Colonoscopy 02/01/2027 02/01/2017, 02/01/2017 Colorectal Cancer Screening 02/01/2027 DTaP,Tdap,and Td Vaccines (3 - Td or Tdap) 01/20/2031 [...] as of this encounter Visit Diagnoses Diagnosis Intractable migraine without aura and with status migrainosus Migraine without aura, with intractable migraine, so stated, with status migrainosus documented in this encounter Care Teams Supervisor Drapery Hanging Relationship Specialty Start Date End Date Rudy Kelly DO [address] [place], [place] [id number] PCP - General Family Medicine 01/20/18 documented as of this encounter
--- OUTSIDE RECORDS SUMMARY | 2024-03-07 05:54 | External Medical Summary | Summary of Care ---
Author Name Unknown Organization [facility] Address [address] [place] [address] Phone [phone] Care Team Providers Care Hat Sizer Name Role Phone Shahida Leyva DO Primary Care Provider [phone] Reason for Visit * Reason Comments eRx-Medication Refill Encounter Details Date Type Department Care Team (Late st Contact Info) Description 10/24/2023 Refill Family Practice [facility] [address] [facility] [place] [address] Shahida Leyva DO [address] [place] [address] Allergies Active Allergy Reactions Criticality Noted Date Comments Cephalosporins Rash 01/18/2010 Clavulanic Acid Hives 07/23/2021 Quinolones Hives High 06/15/2007 Zolmitriptan 07/17/2015 Jaw/neck stiff; took 2 hours to relax muscles documented as of this encounter (statuses as of 10/25/2023) Medications Medication Sig Dispensed Refills Start Date [...] before bedtime. 60 Capsule 5 3 Active tiZANidine HCl 4 MG Oral Tablet (Zanaflex)Indicatio ns:Intractable migraine without aura and with status migrainosus TAKE 1 TABLET BY MOUTH EVERY NIGHT 30 Tablet 6 3 Active predniSONE 10 MG Oral Tablet [...] EVERY MORNING 90 Tablet 1 4 Active buPROPion HCl ER (XL) 300 MG Oral Tablet Extended Release 24 Hour (Wellbutrin XL) take 1 tablet by mouth every morning 90 Tablet 3 3 10/25/19 24 Discontinued documented as of this encounter (statuses as of 10/25/2023) Active Problems Problem Noted Date Diagnosed Date [...] as of this encounter (statuses as of 10/25/2023) Resolved Problems Problem Noted Date Diagnosed Date Resolved Date Current mild episode of avila r depressive disorder without prior episode 07/23/2021 3 documented as of this encounter (statuses as of 10/25/2023) Immunizations Name Administration Dates Next Due COVID-19 mRNA, LNP-s, No Pre serve, 2-Dose Series ([employer] 04/17/2021,08/15/2020,07/15/2020 Seasonal Influenza Virus Vac cine, Unspecified [...] encounter Miscellaneous Notes * Telephone Encounter - Ruben Griffin [facility] - 10/25/2023 1:18 PM EDTSigned Prescriptions: Disp Refills buPROPion HCl ER (XL) 300 MG Oral Tablet E*90 Tab*1 Sig: TAKE 1 TABLET BY MOUTH EVERY MORNINGAuthorizing Provider: SHAHIDA LEYVA User: DAYO GRIFFIN documented in this encounter Plan of Treatment Upcoming Encounters Date Type Department Care Team (Late st Contact Info) Description 02/01/2024 1:00 PM EDT Office Visit Neurology [facility] [address] [facility] [place] [address] Hector Wells, [address] [facility] [place] [address] Scheduled Procedures Name Priority Associated Diagnoses Date/Ti me COLONOSCOPY FLEXIBLE PROXIMAL DIAGNOSTIC Recall Colon cancer screening Health Maintenance Due Date Last Done Comments Hepatitis C Screening 12/19/1981 Hepatitis B (1 of 3 - 19+ 3-dose series) 12/19/1982 HPV/Co-Test 12/19/1993 Cologuard 12/19/2008 Fecal Occult Blood Test 12/19/2008 Sigmoidoscopy 12/19/2008 Cervical Cancer Screening 01/12/2022 Pap Smear 01/12/2022 01/12/2019, 05/0 12/2016, 04/17/2015, Additional history exists COVID-19 Vaccine ( season) 2023 04/17/2021, 08/15/2020, 07/15/2020 Depression Screening 01/23/2023 01/23/2022 Influenza Vaccine (FLU shot) (Season Ended) 2024 01/23/2022, 01/20/2021, 01/20/2021, Additional history exists Mammogram 06/15/2024 06/15/2023, 03/03, 11/11/2020, Additional history exists Lipid Panel 07/30/2025 07/30/2020, 07/01, 03/28/2008, Additional history exists Diabetes Screening 07/28/2026 07/29/2023, 0 10/13/2021, 07/30/2020, Additional history exists Colonoscopy 02/01/2027 02/01/2017, 02/01/2017 Colorectal Cancer Screening 02/01/2027 DTaP,Tdap,and Td Vaccines (3 - Td or Tdap) 01/20/2031 01/20/2021, 10/27/2010, 01/04/2003, Additional history exists Zoster Vaccines Completed 07/23/2021, 01/20/2021 GARDASIL-HPV IMMUNIZATION SERIES Aged Out No longer eligible based on [...] Not on filedocumented as of this encounter Care Teams Hat Sizer Relationship Specialty Start Date End Date Shahida Leyva DO [address] [place] [address] PCP - General Family Medicine 01/20/18 documented as of this encounter
--- OUTSIDE RECORDS SUMMARY | 2024-03-07 05:54 | External Medical Summary | Summary of Care ---
Author Name Unknown Organization [facility] Address [address] [place] [address] Phone [phone] Care Team Providers Care Earth Science Faculty Member Name Role Phone Rudy Kelly DO Primary Care Provider [phone] Reason for Visit * Reason Onset Date Comments Health Maintenance 01/28/2024 Encounter Details Date Type Department Care Team (Late st Contact Info) Description 01/28/2024 Telephone Family Practice [facility] [address] [place] [address] Rudy Kelly DO [address] [place] [address] Health Maintenance Allergies Active Allergy Reactions Criticality Noted Date Comments Cephalosporins Rash 01/18/2010 Clavulanic Acid Hives 07/23/2021 Quinolones Hives High 06/15/2007 Zolmitriptan 07/17/2015 Jaw/neck stiff; took 2 hours to relax muscles documented as of this encounter (statuses as of 01/28/2024) Medications Medication Sig Dispensed Refills Start Date End Date Status MULTIVITAMINS PO TABS 1 tab daily Active OCEAN NASAL SPRAY 0.65 % NA SOLNIndications:Rifle Case Repairer soha rhinitis Two sprays in each nostril [...] BEFORE BEDTIME 90 Capsule 3 01/11/2024 Active documented as of this encounter (statuses as of 01/28/2024) Active Problems Problem Noted Date Diagnosed Date [...] as of this encounter (statuses as of 01/28/2024) Resolved Problems Problem Noted Date Diagnosed Date Resolved Date Current mild episode of avila r depressive disorder without prior episode 07/23/2021 3 documented as of this encounter (statuses as of 01/28/2024) Immunizations Name Administration Dates Next Due COVID-19 mRNA, LNP-s, No Pre serve, 2-Dose Series ([employer]) 04/17/2021,08/15/2020,07/15/2020 Seasonal Influenza Virus Vac cine, Unspecified Formulation 01/20/2021,02/19/2020,01/20/2018,2017,01/13/2016,04/16/2015,02/03/2013,1 ,03/12/2011,04/23/2010 Seasonal Influenza, PF, 6 M & above, IM , (FluLaval or Fluzone) 01/23/2022,01/20/2021,01/20/2018,2017 Seasonal Influenza, Quadriva lent, No Preserve, IM 01/13/2016,04/16/2015 Seasonal Influenza, Trivalen t, (IIV3), with Preserv, (Fluzone) 02/03/2013,02/10/2012,03/12/2011,2009 TD, Preservative Free 01/04/2003 TDAP (age [...] encounter Miscellaneous Notes * Telephone Encounter - Jacqueline Finley LPN - 01/28/2024 10:00 AM EDT Care Gaps Comprehensive Care Outreach Last Office/Telemedicine Visit: 01/11/2024 (in office), Visit date not found (telemedicine) Next Office Visit: Visit date not found Hemoglobin AIC Results: No results found for: "HEMOGLOBIN A1C" BP Readings from Last 1 Encounters: 01/11/24 102/70 Reviewed Health Maintenance below: Health Maintenance Topic Date Due Hepatitis C Screening Never done Cervical Cancer Screening 01/12/2022 Depression Screening 01/23/2023 Influenza Vaccine (FLU shot) (1) 01/02/2024 COVID-19 Vaccine (4 - 2024-25 season) 2024 Mammogram 06/15/2024 Lipid Panel 07/30/2025 Pap maira butler requested Mamm feb maira butler Care Gap Outreach Action Taken: Outside records requested documented in this encounter Plan of Treatment Upcoming Encounters Date Type Department Care Team (Late st Contact Info) Description 02/22/2024 9:20 AM EDT Office Visit Neurology [facility] [place] [address] [facility] [place] [address] Hector Wells, [address] [place] [address] Scheduled Procedures Name Priority Associated Diagnoses Date/Ti [...] filedocumented as of this encounter Care Teams Earth Science Faculty Member Relationship Specialty Start Date End Date Rudy Kelly DO [address] [place] [address] PCP - General Family Medicine 01/20/18 documented as of this encounter
--- OUTSIDE RECORDS SUMMARY | 2024-03-07 05:54 | External Medical Summary | Summary of Care ---
Author Name Unknown Organization [facility] Address [address] [place] [address] Phone [phone] Care Team Providers Care Mixing Machine Operator Name Role Phone LeticiaRudy Cain NICE Primary Care Provider [phone] Reason for Visit * Reason Comments eRx-Medication Refill Encounter Details Date Type Department Care Team (Late st Contact Info) Description 10/22/2023 Refill Neurology [facility] [address] [facility] [place] [address] Hector Wells DO [address] [facility] [address] Intractable chronic migraine without aura and without status migrainosus Allergies Active Allergy Reactions Criticality [...] opp hand. 18.2 mL 11 3 Active buPROPion HCl ER (XL) 300 MG Oral Tablet Extended Release 24 Hour (Wellbutrin XL) take 1 tablet by mouth every morning 90 Tablet 3 3 Active Montelukast Sodium 10 MG Oral [...] MIGRAINE PREVENTION 16 Tablet 3 4 Active Nurtec 75 MG Oral Tablet Disintegrating (Rimegepant Sulfate)Indications :Intractable chronic migraine without aura and without status migrainosus TAKE 1 TABLET BY MOUTH EVERY OTHER DAY FOR MIGRAINE PREVENTION 16 Tablet 3 4 10/25/19 24 Discontinued documented as of this [...] mRNA, LNP-s, No Pre serve, 2-Dose Series ([employer]) 04/17/2021,08/15/2020,07/15/2020 Seasonal Influenza Virus Vac cine, Unspecified [...] Telephone Encounter - Hector Wells DO - 10/25/2023 10:07 AM EDT Signed Prescriptions: Disp Refills Nurtec 75 MG Oral Tablet Disintegrating (R*16 Tab*3 Sig: TAKE 1 TABLET BY MOUTH EVERY OTHER DAY FOR MIGRAINE PREVENTION Authorizing Provider: HECTOR WELLS * Telephone Encounter - Laly Pradhan, [place] - 10/25/2023 9:53 AM EDT Pending Prescriptions: Disp Refills Nurtec 75 MG Oral Tablet Disintegrating [P*16 Tab*3 Sig: TAKE 1 TABLET BY MOUTH EVERY OTHER DAY FOR MIGRAINE PREVENTION * Telephone Encounter - Brooke Telles two - 10/23/2023 4:21 AM EDTPending Prescriptions: Disp Refills Nurtec 75 MG Oral Tablet Disintegrating [P*16 Tab*3 Sig: TAKE 1 TABLET BY MOUTH EVERY OTHER DAY FOR MIGRAINE PREVENTION * Telephone Encounter - Brooke Telles - 10/23/2023 4:19 AM EDT Did you pend patient's preferred pharmacy and medication before forwarding?yes Pharmacy: [id number] [facility] Pending Prescriptions: Disp Refills Nurtec 75 MG Oral Tablet Disintegrating (*16 Tab*3 Sig: TAKE 1 TABLET BY MOUTH EVERY OTHER DAY FOR MIGRAINE PREVENTION Last Visit: 07/21/2023 (in office), Visit date not found (telemedicine) Next Visit: 02/01/2024 If no future appointments scheduled, and last appointment is greater than a year ago, please schedule patient for a follow-up appointment Last date the medication was ordered: 06/07/2023 Is this request for a controlled substance?No [...] 02/01/2024 1:00 PM EDT Office Visit [facility]rology [facility] [address] [place] [address] [address] Hector Wells DO [address] [place] [address] Scheduled Procedures Name Priority Associated Diagnoses Date/Ti [...] of this encounter Visit Diagnoses Diagnosis Intractable chronic migraine without aura and without status migrainosus Chronic migraine without aura, with intractable migraine, so stated, without mention of status migrainosus documented in this encounter Care Teams Mixing Machine Operator Relationship Specialty Start Date End Date Rudy Kelly DO [address] [place] [address] PCP - General Family Medicine 01/20/18 documented as of this encounter
--- OUTSIDE RECORDS SUMMARY | 2024-03-07 05:54 | External Medical Summary | Summary of Care ---
Author Name Unknown Organization [facility] Address [address] [place] [address] Phone [phone] Care Team Providers Care Electrical Electronics Technician Name Role Phone Leticia Rudy Cain NICE Primary Care Provider [phone] Reason for Referral * Evaluate & Treat - Unlimited Visits (Within 10 days (routine)) - Pending Review Specialty Diagnoses / Procedures Referred By Minh hightower Referred To Contact Physical Therapy / Physical Medicine And Rehab Diagnoses Intractable migraine without aura and with status migrainosus Hector Wells DO [address] [place] [address] Referral ID Status Reason Start Date Expiration Date Visits Requested Visits Authorized [id number] Pending Review Specialty Services Required 10/01/[phone] Question Answer Referral Priority Within 10 days (routine) Where should this appointment be scheduled? [facility] Comments PT/massage therapy for migraines Reason for Visit * Reason Onset Date Comments Referral 10/01/2023 Encounter Details Date Type Department Care Team ([facility] Contact Info) Description 10/01/2023 Telephone Neurology [facility] [address] [place] [address] Services, Scheduling [address] [place] [address] Referral Allergies Active Allergy Reactions Criticality Noted Date Comments Cephalosporins Rash 01/18/2010 Clavulanic Acid Hives 07/23/2021 Quinolones Hives High 06/15/2007 Zolmitriptan 07/17/2015 Jaw/neck stiff; took 2 hours to relax muscles documented as of this encounter (statuses as of 10/01/2023) Medications Medication Sig Dispensed Refills Start Date End Date Status MULTIVITAMINS PO TABS 1 tab daily Active OCEAN NASAL SPRAY 0.65 % NA SOLNIndications: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 18.2 mL 11 09/14/2022 Active buPROPion HCl ER (XL) 300 MG Oral Tablet Extended Release 24 Hour (Wellbutrin XL) take 1 tablet by mouth every morning 90 Tablet 3 2022 Active Montelukast Sodium 10 MG Oral Tablet [...] -Mg Supplement 500 MG Oral Capsule (RA Magnesium)Indication s:Intractable migraine without aura and with status migrainosus Take 1 Capsule by mouth in the morning and 1 Capsule before bedtime. 60 Capsule 5 04/29/2023 Active tiZANidine HCl 4 MG Oral Tablet (Zanaflex)Indication s:Intractable migraine without aura and with status migrainosus TAKE 1 TABLET BY MOUTH EVERY NIGHT 30 Tablet 6 04/29/2023 Active predniSONE 10 MG Oral Tablet (Deltasone)Indicatio ns:Acute non-recurrent sinusitis of other sinus,Right acute serous otitis media, recurrence not specified Take 5 tabs for 2 days, 4 tabs for 2 days, 3 tabs for 2 days, 2 tabs for 2 days 1 tab for 2 days 30 Tablet 05/07/2023 Active Additional Information Patient not taking.Reported on 07/21/2023 Nurtec 75 MG Oral Tablet Disintegrating (Rimegepant Sulfate)Indications: Intractable chronic migraine without aura and without status migrainosus TAKE 1 TABLET BY MOUTH EVERY OTHER DAY FOR MIGRAINE PREVENTION 16 Tablet 3 06/07/2023 Active QUEtiapine Fumarate 25 MG Oral Tablet (SEROquel)Indication [...] for Gas. 100 Tablet 1 07/30/2023 Active documented as of this encounter (statuses as of 10/01/2023) Active Problems Problem Noted Date Diagnosed Date [...] as of this encounter (statuses as of 10/01/2023) Resolved Problems Problem Noted Date Diagnosed Date Resolved Date Current mild episode of avila r depressive disorder without prior episode 07/23/2021 documented as of this encounter (statuses as of 10/01/2023) Immunizations Name Administration Dates Next Due COVID-19 mRNA, LNP-s, No Pre serve, 2-Dose Series ([employer]) 04/17/2021,08/15/2020,07/15/2020 Seasonal Influenza Virus Vac cine, Unspecified [...] Recorded PHQ Adult Total Score 0 01/23/2022 Sex and Gender Information Value Date Recorded Sex Assigned at Not on file Gender Identity Not on file Sexual Orientation Not on file Job Start Date Occupation Industry Not on file Not on file Not on file documented as of this encounter Miscellaneous Notes * Telephone Encounter - Michelle Méndez LPN - 10/01/2023 12:58 PM EDT Faxed to [facility] at number provided. * Telephone Encounter - Hector Wells DO - 10/01/2023 12:53 PM EDT Signed. Thanks Michelle. * Telephone Encounter - Michelle Méndez LPN - 10/01/2023 11:03 AM EDT PT referral placed for PT/massage therapy for migraines. Please sign if appropriate. * Telephone Encounter - María Moyer OSA - 10/01/2023 10:27 AM EDT Who is calling: Olivia crespo [facility] Provider patient is established with: Priscilla What is the concern or issue they are having: Requesting updated PT referral with today's date or a date moving forward Diagnosis G43.011 (ICD-10-CM) - Intractable migraine without aura and with status migrainosus Any additional details to add: Fax to [facility] at [phone] Pts phone number for nurse to call back: [phone] documented in this encounter Plan of Treatment Upcoming Encounters Date Type Department Care Team (Late st Contact Info) Description 02/01/2024 1:00 PM EDT Office Visit Neurology [facility] [place] [address] [place] [address] Hector Wells DO [address] [place] [address] Scheduled Procedures Name Priority Associated Diagnoses Date/Ti me COLONOSCOPY FLEXIBLE PROXIMAL DIAGNOSTIC Recall Colon cancer screening Scheduled Referrals Name Type Priority Associated Diagnoses Orde r Schedule PHYSICAL THERAPY REFERRAL OP Referral Within 10 days (routine) Intractable migraine without aura and with status migrainosus Ordered: 10/01/2023 Health Maintenance Due Date Last Done Comments [...] Intractable migraine without aura and with status migrainosus- Primary Migraine without aura, with intractable migraine, so stated, with status migrainosus documented in this encounter Care Teams Electrical Electronics Technician Relationship Specialty Start Date End Date Rudy Kelly DO [address] [place] [address] PCP - General Family Medicine 01/20/18 documented as of this encounter
--- OUTSIDE RECORDS SUMMARY | 2024-03-07 05:54 | External Medical Summary | Summary of Care ---
Author Name Unknown Organization [facility] Address [address] [place] [address] Phone [phone] Care Team Providers Care Casting Tester Name Role Phone LeticiaRudy Cain NICE Primary Care Provider [phone] Encounter Details Date Type Department Care Team (Late st Contact Info) Description 2023 Orders Only [facility] Department [address] [place] [address] Ellie Romeo CHRA [facility] Other*[id number] Allergies Active Allergy Reactions Criticality Noted Date Comments Cephalosporins Rash 01/18/2010 Clavulanic Acid Hives 07/23/2021 Quinolones Hives High 06/15/2007 Zolmitriptan 07/17/2015 Jaw/neck stiff; took 2 hours to relax muscles documented as of this encounter (statuses as of 2023) Medications Medication Sig Dispensed Refills Start Date End Date Status MULTIVITAMINS PO TABS 1 tab daily Active OCEAN NASAL SPRAY 0.65 % NA SOLNIndications:[employer] soha rhinitis Two sprays in each nostril [...] before bedtime. 60 Capsule 5 04/29/2023 Active predniSONE 10 MG Oral Tablet [...] 07/21/2023 QUEtiapine Fumarate 25 MG Oral Tablet (SEROquel)Indication [...] MOUTH NIGHTLY 30 Tablet 6 11/22/2023 Active documented as of this encounter (statuses as of 2023) Active Problems Problem Noted Date Diagnosed Date [...] as of this encounter (statuses as of 2023) Resolved Problems Problem Noted Date Diagnosed Date Resolved Date Current mild episode of avila r depressive disorder without prior episode 07/23/2021 3 documented as of this encounter (statuses as of 2023) Immunizations Name Administration Dates Next Due COVID-19 mRNA, LNP-s, No Pre serve, 2-Dose Series ([employer]) 04/17/2021,08/15/2020,07/15/2020 Seasonal Influenza Virus Vac cine, Unspecified [...] on file documented as of this encounter Plan of Treatment Upcoming Encounters Date Type Department Care Team (Late st Contact Info) Description 02/01/2024 1:00 PM EDT Office Visit [facility]rology [facility] [address] [place] [address] Hector Wells DO [address] [place] [address] Scheduled Orders Name Type Priority Associated Diagnoses Orde r Schedule MYCODE SUBSEQUENT ADULT Lab Routine [facility] Other*[id number] Every 6 Months for 2 Occurrences starting 2023 until 01/08/2025 Scheduled Procedures Name Priority Associated Diagnoses Date/Ti [...] as of this encounter Visit Diagnoses Diagnosis [facility] Other*[id number] documented in this encounter Care Teams Casting Tester Relationship Specialty Start Date End Date Rudy Kelly DO [address] [place], [place] [id number] PCP - General Family Medicine 01/20/18 documented as of this encounter
--- OUTSIDE RECORDS SUMMARY | 2024-03-07 05:54 | External Medical Summary | Summary of Care ---
Author Name Unknown Organization [facility] Address [address] [place] [address] Phone [phone] Care Team Providers Care Coal Feeder Operator Name Role Phone LeticiaRudy Cain NICE Primary Care Provider [phone] Reason for Visit * Reason Comments eRx-Medication Refill Encounter Details Date Type Department Care Team (Late st Contact Info) Description 01/08/2024 Refill Neurology [facility] [address] [place] [facility] [place] [address] Hector Wells DO [address] [facility] [address] Intractable migraine without aura and with status migrainosus Allergies Active Allergy Reactions Criticality Noted Date Comments Cephalosporins Rash 01/18/2010 Clavulanic Acid Hives 07/23/2021 Quinolones Hives High 06/15/2007 Zolmitriptan 07/17/2015 Jaw/neck stiff; took 2 hours to relax muscles documented as of this encounter (statuses as of 01/11/2024) Medications Medication Sig Dispensed Refills Start Date [...] LONGER THAN 5 DAYS, Reported on 05/07/2023 predniSONE 10 MG Oral Tablet (Deltasone)Indicati ons:Acute [...] MOUTH NIGHTLY 30 Tablet 6 4 Active Magnesium Oxide -Mg Supplement 500 MG Oral CapsuleIndications: Intractable migraine without aura and with status migrainosus TAKE 1 CAPSULE BY MOUTH IN THE MORNING AND 1 CAPSULE BEFORE BEDTIME 90 Capsule 3 4 Active Magnesium Oxide -Mg Supplement 500 MG Oral Capsule (RA Magnesium)Indicatio ns:Intractable migraine without aura and with status migrainosus Take 1 Capsule by mouth in the morning and 1 Capsule before bedtime. 60 Capsule 5 3 01/11/20 24 Discontinued documented as of this encounter (statuses as of 01/11/2024) Active Problems Problem Noted Date Diagnosed Date [...] as of this encounter (statuses as of 01/11/2024) Resolved Problems Problem Noted Date Diagnosed Date Resolved Date Current mild episode of avila r depressive disorder without prior episode 07/23/2021 3 documented as of this encounter (statuses as of 01/11/2024) Immunizations Name Administration Dates Next Due COVID-19 mRNA, LNP-s, No Pre serve, 2-Dose Series ([employer]) 04/17/2021,08/15/2020,07/15/2020 Seasonal Influenza Virus Vac cine, Unspecified [...] Telephone Encounter - Hector Wells DO - 01/11/2024 10:15 AM EDT Signed Prescriptions: Disp Refills Magnesium Oxide -Mg Supplement 500 MG Oral*90 Cap*3 Sig: TAKE 1 CAPSULE BY MOUTH IN THE MORNING AND 1 CAPSULE BEFORE BEDTIME Authorizing Provider: HECTOR WELLS * Telephone Encounter - Michelle Méndez LPN - 01/11/2024 10:03 AM EDTPending Prescriptions: Disp Refills Magnesium Oxide -Mg Supplement 500 MG Oral*90 Cap*3 Sig: Take 1 Capsule by mouth in the morning and 1 Capsule before bedtime. * Telephone Encounter - Gene Otero [facility] - 01/11/2024 9:07 AM EDT Pending Prescriptions: Disp Refills Magnesium Oxide -Mg Supplement 500 MG Oral*90 Cap*3 Sig: Take 1 Capsule by mouth in the morning and 1 Capsule before bedtime. * Telephone Encounter - Gene Otero [facility] - 01/11/2024 9:07 AM EDT [facility] is currently not authorized to approve refills for the pended medication(s) per refill protocol. Please approve if appropriate. Thanks, Gene Otero, PharmD Clinical Pharmacist [facility] [phone] 01/11/2024, 9:07 AM documented in this encounter Plan of Treatment Upcoming Encounters Date Type Department Care Team (Late st Contact Info) Description 01/11/2024 10:40 AM EDT Office Visit Family Practice [facility] [place] [address] [facility] [place] [address] Kathia Bridges PA-C [address] [facility] [place] [address] Arrived 06/01/2024 8:00 AM EST Office Visit Neurology [facility] [place] [address] [facility] [place] [address] Hector Wells, [address] [facility] [place] [address] Scheduled Procedures Name Priority Associated Diagnoses Date/Ti [...] migrainosus documented in this encounter Care Teams Coal Feeder Operator Relationship Specialty Start Date End Date Rudy Kelly DO [address] [place] [address] PCP - General Family Medicine 01/20/18 documented as of this encounter
--- OUTSIDE RECORDS SUMMARY | 2024-03-07 05:54 | External Medical Summary | Summary of Care ---
Author Name Unknown Organization [facility] Address [address] [place] [address] Phone [phone] Care Team Providers Care Train Gateman Name Role Phone RejiRudy chiu Cain NICE Primary Care Provider [phone] Reason for Visit * Reason Comments Acute Cold symptoms starte d 3 weeks ago, continues to have sinus pressure, PND causing cough. Has taken Sudafed, Zyrtec and Flonase Encounter Details Date Type Department Care Team (Late st Contact Info) Description 01/11/2024 10:40 AM EDT Office Visit Family Practice [facility] [address] [place] [address] Kathia Bridges PA-C [address] [place] [address] Acute maxillary sinusitis, recurrence not specified* Allergies [...] 05/07/2023 QUEtiapine Fumarate 25 MG Oral Tablet (SEROquel)Indicatio [...] BEFORE BEDTIME 90 Capsule 3 4 Active Sulfamethoxazole-Tr imethoprim 800-160 MG Oral Tablet (Bactrim DS)Indications:Acut e maxillary sinusitis, recurrence not specified Take 1 Tablet by mouth in the morning and 1 Tablet before bedtime. Do all this for 10 days. Until gone.. 20 Tablet 4 01/21/20 24 Active predniSONE 10 MG Oral Tablet (Deltasone)Indicati ons:Acute non-recurrent sinusitis of other sinus,Right acute serous otitis media, recurrence not specified Take 5 tabs for 2 days, 4 tabs for 2 days, 3 tabs for 2 days, 2 tabs for 2 days 1 tab for 2 days 30 Tablet 4 01/11/20 24 Discontinued documented as of this [...] mRNA, LNP-s, No Pre serve, 2-Dose Series ([employer]) 04/17/2021,08/15/2020,07/15/2020 Seasonal Influenza Virus Vac cine, Unspecified [...] 0 05/03/1986 - 05/03/1988 Smokeless Tobacco: Never Tobacco Cessation:Counseling Given: Not Answered Comments:no passive smoke exposures Alcohol Use Standard Drinks/Week Comments Yes 1.7 [...] Sign Reading Time Taken Comments Blood Pressure 102/70 01/11/2024 10:34 AM EDT Pulse 72 01/11/2024 10:34 AM EDT Temperature 36.6 C (97.9 F) 01/11/2024 10:34 AM E DT Respiratory Rate 16 01/11/2024 10:34 AM EDT Oxygen Saturation 99% 01/11/2024 10:34 AM EDT Inhaled Oxygen Concentration - - Weight 81.2 kg (179 lb) 01/11/2024 10:34 AM EDT Height 174.5 cm (5' 8.7") 01/11/2024 10:34 AM ED T Body Mass Index 26.67 01/11/2024 10:34 AM EDT documented in this encounter Progress Notes * Kathia Bridges PA-C - 01/11/2024 11:01 AM EDT Images from the original note were not included. History of Present Illness Teresa Caceres is a 58 year old female that presents for Acute (Cold symptoms started 3 weeks ago, continues to have sinus pressure, PND causing cough. Has taken Sudafed, Zyrtec and Flonase ) Patient is a 58 year old female who presents with respiratory symptoms for 3 weeks. Started as a head cold. She notes fatigue, slight headache, facial pressure, nasal congestion, some pn drip, scratchy throat, cough/non productive, chest tightness, Tried sudafed, zyrtec, flonase , singulair History of sinus infections. Physical Exam Vitals: 01/11/24 1034 Temp: 36.6 C (97.9 F) Pulse: 72 Resp: 16 SpO2: 99% BP: 102/70 BMI: 26.66 BP Readings from Last 3 Encounters: 01/11/24 102/70 07/28/23 130/84 07/21/23 130/80 Wt Readings from Last 3 Encounters: 01/11/24 81.2 kg (179 lb) 07/28/23 86 kg (189 lb 11.2 oz) 07/21/23 84.3 kg (185 lb 14.4 oz) General: alert, healthy, no distress, well nourished, well developed, and [...] Acute maxillary sinusitis, recurrence not specified (Primary) - Sulfamethoxazole-Trimethoprim 800-160 MG Oral Tablet (Bactrim DS); Take 1 Tablet by mouth in the morning and 1 Tablet before bedtime. Do all this for 10 days. Until gone.. Wrap-Up Time: I spent a total of 20-29 minutes (exact time 22 mins) on the date of service in preparation, delivery, and documentation of the care provided to Teresa Caceres excluding any time spent in the performance of separately billed services. documented in this encounter Nursing Notes * Shaila Andrews LPN - 01/11/2024 10:34 AM EDT The patient has been properly identified by confirmation of name and date of . Chief Complaint Patient presents with Acute Cold symptoms started 3 weeks ago, continues to have sinus pressure, PND causing cough. Has taken Sudafed, Zyrtec and Flonase documented in this encounter Plan of Treatment Upcoming Encounters Date Type Department Care Team (Late st Contact Info) Description 06/01/2024 8:00 AM EST Office Visit Neurology [facility] [place] [address] [facility] [place], [place] [address] Hector Wells DO [address] [facility] [place] [address] Scheduled Procedures Name Priority Associated Diagnoses Date/Ti me COLONOSCOPY FLEXIBLE PROXIMAL DIAGNOSTIC Recall Colon cancer screening Health Maintenance Due Date Last Done Comments Hepatitis C Screening 12/19/1981 HPV/Co-Test 12/19/1993 Cologuard 12/19/2008 Fecal Occult Blood Test 12/19/2008 Sigmoidoscopy 12/19/2008 Cervical Cancer Screening 01/12/2022 Pap Smear 01/12/2022 01/12/2019, 05/12/2016, 04/17/2015, Additional history exists Depression Screening 01/23/2023 [...] Primary documented in this encounter Care Teams Train Gateman Relationship Specialty Start Date End Date Rudy Kelly DO [address] [place] [address] PCP - General Family Medicine 01/20/18 documented as of this encounter
--- OUTSIDE RECORDS SUMMARY | 2024-03-07 05:55 | External Medical Summary | Summary of Care ---
Author Name Unknown Organization [facility] Address [address] [place] [address] Phone [phone] Care Team Providers Care Waiter/Waitress Counter Name Role Phone Rudy Kelly DO Primary Care Provider [phone] Reason for Visit * Reason Onset Date Comments Advice 10/01/2023 Encounter Details Date Type Department Care Team ([facility] st Contact Info) Description 10/01/2023 Telephone Family Practice [facility] [address] [place] [address] Rudy Kelly DO [address] [place] [address] Advice Allergies Active Allergy Reactions Criticality Noted Date Comments Cephalosporins Rash 01/18/2010 Clavulanic Acid Hives 07/23/2021 Quinolones Hives High 06/15/2007 Zolmitriptan 07/17/2015 Jaw/neck stiff; took 2 hours to relax muscles documented as of this encounter (statuses as of 10/01/2023) Medications Medication Sig Dispensed Refills Start Date End Date Status MULTIVITAMINS PO TABS 1 tab daily Active OCEAN NASAL SPRAY 0.65 % NA SOLNIndications:Seo Strategist soha rhinitis Two sprays in each nostril [...] mRNA, LNP-s, No Pre serve, 2-Dose Series ([employer]) 04/17/2021,08/15/2020,07/15/2020 Seasonal Influenza Virus Vac cine, Unspecified [...] encounter Miscellaneous Notes * Telephone Encounter - Daphnie Gan OSA - 10/01/2023 10:08 AM EDT Per nurse Edwige - Olivia needs transferred to Neurology to get the updated PT referral. documented in this encounter Plan of Treatment Upcoming Encounters Date Type Department Care Team (Late st Contact Info) Description 02/01/2024 1:00 PM EDT Office Visit Neurology [facility] [address] [place] [address] Hector Wells DO [address] [place] [address] Scheduled Procedures Name Priority Associated Diagnoses Date/Ti [...] filedocumented as of this encounter Care Teams Waiter/Waitress Counter Relationship Specialty Start Date End Date Rudy Kelly DO [address] [place] [address] PCP - General Family Medicine 01/20/18 documented as of this encounter
[2024-03-07 08:19] VITALS: TEMP 98.2
--- NOTE | 2024-03-07 08:20 | Cardiology Consultation ---
Date of Consultation March 07, 2024 Assessment & Plan (1) Chest pain: Plan Assessment: 58 year old female admitted for new onset chest pain, worse with exertion and relieved with SL NTG. Request for cardiology services for further evaluation.. Plan: -New onset acute chest pain worse with exertion and associated shortness of breath. -EKG with no acute ST-T wave changes. -No prior history of cardiac disease for patient, but strong family history. Mother carries a history of A-fib, father has a history of CAD with 5 prior stents. -Echocardiogram demonstrates normal LVEF and wall motion, no significant valvular disease noted. -given patient's symptoms, response to SL NTG, would recommend further ischemic work up by stress echocardiogram. Patient remains NPO -Review of telemetry shows SR with no acute events overnight. -BP above target today. Continue ASA 81mg and Lisinopril at this time. -Further recommendations pending stress test. 03/07/2024 1210: Addendum: -Stress echocardiogram negative for inducible ischemia, but does show a hypertensive response to activity. -Plan is to increase Lisinopril to 10mg daily. first dose now. -Patient may resume a normal cardiac prudent diet upon return from her stress test. -Patient is ok for discharge from a cardiac perspective when ok with primary team. Case has been discussed with Dr. Ceballos. Further recommendations regarding plan of care as per his assessment. I spent a total of 40 minutes on the date of service in preparation, delivery, documentation of the care provided to the patient excluding any time spent in the performance of separately billed services. TALITA Veloz [facility] Cardiology [facility] Supervising Physician Co-Signing Physician Notes I have personally performed a history and physical examination on the patient. I have reviewed the advance practitioner's documentation, and I agree with, and take responsibility for the plan of care. 58-year-old female presents to the emergency department with right-sided chest discomfort. Cardiac enzymes within normal limits. Resting echocardiogram demonstrates normal LV wall function, no significant valvular pathology. ECG on admission with nonspecific ST abnormality. Recommend further evaluation with exercise stress echo. Patient agreeable. Addendum: Exercise stress echo negative for inducible ischemia. Moderate workload achieved. No reproduction of chest discomfort with exercise. Test terminated due to fatigue. Hypertensive blood pressure noted. Recommend lisinopril 10 mg daily to improve blood pressure control. Follow-up with primary care 1-2 week post discharge. Low-sodium diet recommended. César Ceballos DO, [facility] History of Present Illness Reason for Consultation: Chest pain and shortness of breath Requesting Physician: Elsie hospitalist Attending Physician: Farzaneh Wong MD History of Present Illness HPI:58 year old female with PMHx significant for migraines, anxiety and seasonal allergies that presents with sudden onset midsternal chest pain with radiation to her jaw. Started approx 2 hours prior to her arrival to the ER. Reports that it became worse with exertion and relieved with rest. Reports associated shortness of breath with the pain. No lightheadedness or dizziness. No sense of palpitations. Denies any prior cardiac history for herself, but does endorse that her father has significant coronary disease with 5 prior stents. Patient states that after receiving a SL NTG, her pain resolved. She did report a second episode later last night, again relieved with one SL NTG. No ectopy on telemetry and no acute EKG changes. EKG demonstrates NSR possible prior anterior infarct (cited on prior studies dating back to 2021). Rate 84bpm High sensitivity troponin negative x4. Chest xray negative Echocardiogram pending. Allergies Allergy/AdvReac Type Severity Reaction Status Date / Time amoxicillin Allergy Unknown Verified 03/06/24 17:17 levofloxacin [From Levaquin] Allergy Unknown Verified 03/06/24 17:17 sumatriptan Allergy Unknown Verified 03/06/24 17:17 Home Medications Medication Instructions Recorded Confirmed Type magnesium oxide 500 mg PO BID 01/13/19 03/06/24 History melatonin 5 mg tablet 5 mg PO HS PRN Sleep 01/13/19 03/06/24 History riboflavin (vitamin B2) 100 mg 400 mg PO QAM 04/07/20 03/06/24 History tablet (Vitamin B-2) tizanidine 4 mg tablet 4 mg PO HS PRN migraines 04/07/20 03/06/24 History tramadol 50 mg tablet 50 mg PO Q6H PRN pain #14 tabs 04/07/20 03/06/24 Rx rimegepant [Nurtec ODT] 1 tab PO .EVERY OTHER DAY 06/21/23 03/06/24 History bupropion HCl 300 mg 24 hr tablet, 300 mg PO QAM 03/06/24 03/06/24 History extended release doxycycline hyclate 100 mg capsule 100 mg PO BID 03/06/24 03/06/24 History lactobacillus combination no.4 3 0 cell PO DAILY 03/06/24 03/06/24 History billion cell capsule (Probiotic) montelukast 10 mg tablet 10 mg PO QAM 03/06/24 03/06/24 History aspirin 81 mg tablet,delayed 81 mg PO QAM #30 tabs 03/07/24 Rx release lisinopril 10 mg tablet 10 mg PO QAM #30 tabs 03/07/24 Rx Patient History Medical History (Updated 03/06/24 @ 21:45 by Jose Dunn DO) Breast lump Migraine headache History of herpes zoster Surgical History S/P lumpectomy, right breast radial scar S/P tonsillectomy H/O oral surgery Family History Aunt Breast cancer Denies family history of Ovarian cancer Prostate cancer Myocardial infarction Colorectal cancer Social History (Updated 06/21/23 @ 15:22 by Jo Ann Junior RN) Smoking Status: Former smoker Tobacco Type: Cigarettes Age Quit Using Tobacco: 21; Smoking End Date: Quit @21 years old; Do You Dip or Chew Tobacco: No; Hx Alcohol Use: Yes Hx Substance Use: No Preferred Language: Setswana Communication Ability: Effective Truck Body Builder Required: No Beliefs That Will Affect Care: None marital status: Current Living Situation: Spouse and Family 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 Feels Safe at Home: Yes Safety Concerns: Feels Safe At This Time Assistive Devices: None Review of Systems Review of Systems: All systems reviewed & are unremarkable except as noted in HPI & below Physical Exam Constitutional: WD/WN, vitals as above Neck: normal visual inspection and trachea midline Respiratory: normal respiratory effort, lungs clear to auscultation Cardiovascular: Rate/Rhythm: regular rate and regular rhythm Heart Sounds: normal S1 and normal S2; no murmur Vessels: dorsalis pedis pulses present; no JVD Skin: no rashes, warm and dry Psychiatric: A+Ox3, euthymic affect Results & Data Vital Signs (Past 12 Hours) Vital Signs Temp Pulse Pulse Resp BP Pulse Ox O2 Del Method 03/07/24 07:58 71 03/07/24 03:22 37.2 C 72 18 160/77 H 98 Room Air 03/06/24 23:05 81 164/78 H 03/06/24 22:16 96 H 18 169/86 H 03/06/24 22:13 173/87 H 03/06/24 22:01 36.9 C 72 18 148/92 H 93 Room Air 03/06/24 22:00 74 Laboratory Results Cardiac Enzymes 03/06/24 03/06/24 03/06/24 Range/Units 16:10 21:05 22:36 AST 22 (13-39) U/L Troponin I High Sens 2.9 5.8 5.5 (0-14) pg/ml 03/07/24 03/07/24 Range/Units 03:25 08:18 AST 20 (13-39) U/L Troponin I High Sens 5.0 (0-14) pg/ml Coagulation 03/06/24 Range/Units 16:10 PT 10.8 (9.0-12.0) Seconds APTT 36 H (21-31) Seconds Lipids 03/07/24 Range/Units 03:25 Triglycerides 126 (0-150) mg/dl Cholesterol 170 (0-200) mg/dl HDL Cholesterol 58 mg/dl Cholesterol/HDL Ratio 2.9 (0-5) CBC 03/06/24 03/07/24 Range/Units 16:10 08:18 WBC 9.42 6.41 (4.8-10.8) K/ul RBC 4.52 4.22 (4.20-5.40) M/uL Hgb 14.3 13.4 (12.0-16.0) g/dl Hct 40.5 38.6 (37.0-47.0) % Plt Count 271 232 (130-400) K/uL Neut # (Auto) 4.86 (1.40-6.50) K/uL Lymph # (Auto) 3.33 (1.20-3.40) K/uL [place] # (Auto) 0.91 H (0.11-0.59) K/uL Eos # (Auto) 0.20 (0.00-0.50) K/uL Baso # (Auto) 0.09 (0.00-0.20) K/uL Comprehensive Metabolic Panel 03/06/24 03/07/24 Range/Units 16:10 08:18 Sodium 139 140 (136-145) mmol/L Potassium 3.4 L 4.2 D (3.5-5.1) mmol/L Chloride 105 108 H (98-107) mmol/L Carbon Dioxide 26 25 (21-32) mmol/L BUN 16 11 (6-23) mg/dl Creatinine 1.03 0.90 (0.6-1.2) mg/dl Glucose 108 H 101 H (70-99(Fasting)) mg/dl Calcium 9.2 9.1 (8.6-10.3) mg/dl AST 22 20 (13-39) U/L ALT 28 24 (7-52) U/L Alkaline Phosphatase 88 76 (34-104) U/L Total Protein 7.6 6.7 (6.0-8.3) gm/dl Albumin 4.5 4.0 (3.4-5.0) gm/dl Intake and Output 03/06/24 03/07/24 03/07/24 22:59 06:59 14:59 Other: Other Intake Source NPO # Unmeasured Voids 1 2 Weight 79.4 kg 78.5 kg Weight Measurement Method Standing Scale Built in [facility] Diagnostic Findings Echocardiogram 03/07/2024: LV systolic function is normal LVEF 60-65% LV wall motion is normal No significant valvular pathology (1) Chest pain Chest pain type: unspecified Qualified Code(s): R07.9 - Chest pain, unspecified
[2024-03-07 08:36] LABS: Hematocrit (blood only) 38.6 % (37.0-47.0); Hemoglobin 13.4 g/dl (12.0-16.0); Mean Corpuscular Hemoglobin 31.8 pg (25.0-34.0); Mean Corpuscular Hgb Conc 34.7 g/dL (32.0-36.0); Mean Corpuscular Volume 91.5 fL (80.0-100.0); Mean Platelet Volume 9.9 fL (9.4-12.4); Platelet Count 232 K/uL (130-400); RDW Coefficient of Variation 11.9 % (11.5-14.5); RDW Standard Deviation 39.4 fL (36.4-46.3); Red Blood Count 4.22 M/uL (4.20-5.40); White Blood Count 6.41 K/ul (4.8-10.8)
[2024-03-07 08:58] LABS: Albumin Globulin Ratio 1.5 (0.9-2); BUN Creatinine Ratio 12.2 (10-20); Bilirubin,Total 0.9 mg/dl (0.2-1.0); Calcium 9.1 mg/dl (8.6-10.3); Creatinine Clr Calc Pharmacy 71.7 ml/min; Globulin 2.7 gm/dl (2.5-4.0); Potassium 4.2 mmol/L (3.5-5.1); Total Protein 6.7 gm/dl (6.0-8.3)
[2024-03-07] MEDS: ASPIRIN 81 MG ECTAB PO SCH (09:34)
[2024-03-07] MEDS: buPROPion XL 300 MG TABCR PO SCH (09:35)
[2024-03-07] MEDS: ADVANCED PROBIOTIC 625 MG CAPSULE PO SCH (09:37)
[2024-03-07] MEDS: MONTELUKAST SODIUM 10 MG TABLET PO SCH (09:38)
[2024-03-07] MEDS ORDERED: Nursing to Pharmacy Communication SCH (12:30)
--- NOTE | 2024-03-07 12:52 | Discharge Summary ---
Discharge Summary Date of Service March 07, 2024 The patient is a 58-year-old female with past medical history of migraines, anxiety, seasonal allergies who presents to the ED on 03/26 with complaints of sharp chest pain in the middle of her chest that radiates to her right jaw. Patient reported her pain started around 2 PM earlier today. The chest pain worsens with exertion and improves with rest. Patient reports that the pain starts in the middle of her chest goes up to her right upper chest and goes up to her right jaw and neck. Also reports lately having some shortness of breath with exertion with movement. She denies any cardiac history. She is never seen a manugrapher in the past. She was recently seen for a sinus infection/upper respiratory infection and started on Doxy which she has been on for about 7 days intended to have a full 10-day course. Reports frequent sinus infections in the past. Patient does report she does have a family history of heart disease. On arrival to the ED, labs are fairly unremarkable, potassium is 3.4, glucose 108 Chest x-ray was negative for anything acute Troponin negative, no acute EKG changes. Cardiology CONSULTED. EKG without acute STT wave changes. Echocardiogram shows a normal LVEF and wall motion, no valvular disease noted Patient had a stress echocardiogram completed that was negative for ischemia but shows hypertensive response to activity, the patient will be discharged on lisinopril 10 mg daily The patient will be started on a baby aspirin daily 81 mg on discharge. The patient will need to continue a cardiac prudent diet on discharge. Her lipid panel was unremarkable Her labs/vitals are stable. The patient stable for discharge home today. She will need to follow with her PCP within 1 week of discharge. She will need to follow-up with cardiology within 2 weeks of discharge. Principal Dx & Hospital Course #1 = Principal Diagnosis (1) Migraine headache: (2) Sinusitis: Plan Assessment and plan: Chest painmidsternal: Received aspirin/nitro with relief, no hypoxia Reports shortness of breath with exertion, check echo EKG without acute changes, consult cardiology, trend troponins N.p.o. after midnight for possible stress test/cath Telemetry monitoring, repeat EKG with any further chest pain Check D-dimer/CRP/ESR Hx migraines: Takes Nurtec as needed, IV Toradol x 1 given in ED Hx anxiety: Continue Wellbutrin A total of 60 minutes was spent on chart review/reviewing diagnostic data/facilitating plan of care/discussion with consultants Full code DVT prophylaxis: Sendy Notes For Next Care Provider Medication Changes From Visit Lisinopril and aspirin added Admission HPI Per Admitting Provider The patient is a 58-year-old female with past medical history of migraines, anxiety, seasonal allergies who presents to the ED on 03/26 with complaints of sharp chest pain in the middle of her chest that radiates to her right jaw. Patient reported her pain started around 2 PM earlier today. The chest pain worsens with exertion and improves with rest. Patient reports that the pain starts in the middle of her chest goes up to her right upper chest and goes up to her right jaw and neck. Also reports lately having some shortness of breath with exertion with movement. She denies any cardiac history. She is never seen a manugrapher in the past. She was recently seen for a sinus infection/upper respiratory infection and started on Doxy which she has been on for about 7 days intended to have a full 10-day course. Reports frequent sinus infections in the past. Patient does report she does have a history of heart disease. On exam, the patient no longer has chest pain but does report some right jaw pain. Reports feeling as though she is having an aura that usually causes her migraines. Denies any neurological symptoms. Denies any numbness/weakness. On arrival to the ED, labs are fairly unremarkable, potassium is 3.4, glucose 108 Chest x-ray was negative for anything acute Troponin negative, no acute EKG changes. The patient will be admitted for further monitoring rule out ACS Discharge Exam Constitutional WD/WN, vitals as above well developed and well nourished; no acute distress Eyes PERRL, conjunctivae normal, anicteric sclerae ENMT external ear and nose normal, oropharynx normal (Right jaw pain on exam) Neck trachea midline, no thyromegaly Respiratory normal respiratory effort, lungs clear to auscultation Cardiovascular RRR, no murmur, no edema Gastrointestinal (Abdomen) normal bowel sounds, soft, nontender, no hepatosplenomegaly Musculoskeletal no cyanosis or clubbing, extremities motor strength 5/5 Neurologic PERRL, EOMI, accommodation nl, no face palsy, no dysarthria Lymphatic no cervical or axillary lymphadenopathy Updated Medication List Medication Instructions Recorded Confirmed Type magnesium oxide 500 mg PO BID 01/13/19 03/06/24 History melatonin 5 mg tablet 5 mg PO HS PRN Sleep 01/13/19 03/06/24 History riboflavin (vitamin B2) 100 mg 400 mg PO QAM 04/07/20 03/06/24 History tablet (Vitamin B-2) tizanidine 4 mg tablet 4 mg PO HS PRN migraines 04/07/20 03/06/24 History tramadol 50 mg tablet 50 mg PO Q6H PRN pain #14 tabs 04/07/20 03/06/24 Rx rimegepant [Nurtec ODT] 1 tab PO .EVERY OTHER DAY 06/21/23 03/06/24 History bupropion HCl 300 mg 24 hr tablet, 300 mg PO QAM 03/06/24 03/06/24 History extended release doxycycline hyclate 100 mg capsule 100 mg PO BID 03/06/24 03/06/24 History lactobacillus combination no.4 3 0 cell PO DAILY 03/06/24 03/06/24 History billion cell capsule (Probiotic) montelukast 10 mg tablet 10 mg PO QAM 03/06/24 03/06/24 History aspirin 81 mg tablet,delayed 81 mg PO QAM #30 tabs 03/07/24 Rx release lisinopril 10 mg tablet 10 mg PO QAM #30 tabs 03/07/24 Rx Hospital Stay Data Consultations 03/06/24 17:42 Consult Cardiology Routine 03/06/24 17:47 ED Decision to Admit Stat Pending Results Patient Have Any Pending Studies at Discharge: No Discharge Instructions Given to Patient (Per Discharging Provider) Please follow with your PCP within 1 week of discharge. Please follow with cardiology within 2 weeks of discharge. You are being discharged on lisinopril for blood pressure. Please take this daily. Your cardio workup was negative. Return back to the ED with worsening symptoms Total Time Total Time Spent Total Time Spent (In Minutes): 60 Total Time Includes: Examination of the Patient, Discharge Planning, Medication Reconciliation and Communication With Other Providers Supervising Physician Co-Signing Physician Notes Patient was seen and examined at bedside as a follow-up of chest pain rule out ACS. troponin trends and EKG negative. Stress echocardiogram negative for inducible ischemia but positive for hypertensive response. Lisinopril and aspirin added. Cardiology evaluated, appreciate recommendation. f/u w/ pcp and cardio on dc. On exam: GENERAL: Alert and oriented x3. NAD, on RA. HEENT: No pallor, no icterus. Pupils equal, round and reactive to light. Oral mucosa moist. NECK: No JVD, no neck masses. HEART: S1 and S2 heard. Regular rate and rhythm. No murmur, no gallop. RESPIRATORY SYSTEM: Normal AP diameter. No accessory muscle use. No wheezing, no crackles. ABDOMEN: Soft, bowel sounds present, nontender, no distention. CENTRAL NERVOUS SYSTEM: No facial droop. Speech is clear. Obeys simple commands. Moves extremities. EXTREMITIES: No edema, no erythema seen. Time spent: 20 I have seen and examined the patient and have discussed the case with the provider above. I agree with the assessment and plan as stated.
[2024-03-07] MEDS: lisinopril 10 MG TAB PO SCH (13:31)
[2024-03-07] MEDS: RIMEGEPANT SULFATE 75 MG PO SCH (13:32)
[2024-03-07 13:40] VITALS: BP 147/87; PULSE 81; RESP 18; O2SAT 96
--- NOTE | 2024-03-07 14:13 | Electrocardiogram Report ---
Test Reason : Blood Pressure : */* mmHG Vent. Rate : 90 BPM Atrial Rate : 90 BPM P-R Int : 146 ms QRS Dur : 68 ms QT Int : 330 ms P-R-T Axes : 33 58 50 degrees QTcB Int : 403 ms Normal sinus rhythm Possible Left atrial enlargement Poor R wave progression, consider anterior LA vs. lead placement vs. LVH Abnormal ECG When compared with ECG of 09-Jan-2022 10:11, Non-specific change in ST segment in Lateral leads Confirmed by Francis Becerra ([id number]) on 03/07/2024 2:12:55 PM Referred By: REFERRED SELF Confirmed By: Francis Becerra
--- NOTE | 2024-03-07 14:18 | Electrocardiogram Report ---
Test Reason : Blood Pressure : */* mmHG Vent. Rate : 84 BPM Atrial Rate : 84 BPM P-R Int : 146 ms QRS Dur : 70 ms QT Int : 372 ms P-R-T Axes : 64 30 53 degrees QTcB Int : 439 ms Normal sinus rhythm Poor R wave progression, consider anterior NH vs. lead placement vs. LVH Abnormal ECG When compared with ECG of 06-Mar-2024 16:07, (unconfirmed) No significant change was found Confirmed by Francis Becerra ([id number]) on 03/07/2024 2:18:26 PM Referred By: REFERRED SELF Confirmed By: Francis Becerra
--- NOTE | 2024-03-07 14:23 | Electrocardiogram Report ---
Test Reason : Blood Pressure : */* mmHG Vent. Rate : 77 BPM Atrial Rate : 77 BPM P-R Int : 152 ms QRS Dur : 78 ms QT Int : 408 ms P-R-T Axes : 74 39 64 degrees QTcB Int : 461 ms Normal sinus rhythm Nonspecific ST abnormality Abnormal ECG When compared with ECG of 06-Mar-2024 22:11, No significant change was found Confirmed by Francis Becerra ([id number]) on 03/07/2024 2:23:22 PM Referred By: REFERRED SELF Confirmed By: Francis Becerra
[2024-03-07] MEDS: INFLUENZA VACC TS2024-25(6m+)/PF (IIV3) 0.5mL Syr IM ONE (14:41)
--- NOTE | 2024-03-08 14:26 | Coding Query ---
CHEST PAIN To promote full compliance with coding requirements relating to patient care physician participation is requested in all cases of acid adjuster uncertainty. Please assist us with the question(s) below: ED:presents with chest pain. Vital Signs: reviewed and remarkable for HTN BP-162/93--159/76 CARDIO CONS-03/07/2024 1210: Addendum: -Stress echocardiogram negative for inducible ischemia, but does show a hypertensive response to activity. -Plan is to increase Lisinopril to 10mg daily. first dose now. 03/06 IM PN-Chest pain Uncontrolled hypertension Anxiety contributory Please list a more specific chest pain diagnosis or cause of chest pain if known by placing an X within the parenthesis (x): ( ) Atypical/MSK Chest Pain ( ) Chest Wall Pain ( ) Pleuritic Chest Pain ( ) Uncontrolled Htn (pls specify--urgency, emergency or crisis) ( ) Other (please Specify) Thank you Farzana HOSKINS
[2024-03-09] MEDS ORDERED: RIMEGEPANT SULFATE 75 MG PO SCH (09:00)
== END 2024-03-07 17:14 | disposition home or self-care (01) ==
LOC: ED 15:59 → INTOOBSV 17:45 → 2E 17:45 → SUATTDRO 17:45 → 2E 18:33